=== PATIENT | female | born 1960 | race Caucasian/White ===

== ENCOUNTER 2017-04-01 08:45 | Inpatient (IN) | payer MEDICAID, SELFPAY ==
[2017-03-18 11:32] VITALS: BP 143/94; PULSE 73; RESP 16; TEMP 35.9; O2SAT 97; BMI 37.0
--- NOTE | 2017-03-18 11:44 | SDCEKG_ITS ---
Test Reason : Blood Pressure : / mmHG Vent. Rate : 060 BPM Atrial Rate : 060 BPM P-R Int : 196 ms QRS Dur : 074 ms QT Int : 392 ms P-R-T Axes : 012 018 072 degrees QTc Int : 392 ms Normal sinus rhythm Normal ECG Confirmed by PHILLIP MCQUEEN ([id number]), school photograph editor BELTRAN CONTRERAS ([id number]) on 03/19/2017 11:31:59 AM Referred By: Sergo Rai Confirmed By:PHILLIP MCQUEEN
--- NOTE | 2017-03-18 12:01 | RAD_ITS ---
STUDY: X-RAY CHEST REASON FOR EXAM: Female, 56 years old. Pre-op. No chest complaints today TECHNIQUE: PA and lateral views of the chest. COMPARISON: Chest x-rays on February 03, 2015. FINDINGS: The lungs are clear and expanded. There is no demonstrated pleural abnormality. Normal size heart. Normal mediastinum and reyna. Normal visualized pulmonary arteries. Normal visualized aortic arch and descending thoracic aorta. There is mild thoracic dextroscoliosis Normal visualized ribs, clavicles, and shoulders. There is no demonstrated abnormality of the visualized soft tissue structures of the upper abdomen. RAD/Chest PA and Lateral IMPRESSION: No signs of acute cardiopulmonary disease. Mild thoracic dextroscoliosis Electronically Signed: Rob Flores MD, FACR at 12:43 EST , Service support ,
[2017-03-18 12:18] LABS: Absolute Neutrophil Count 3.8 X10^3/uL (2.0-7.7); Basophil# 0.02 X10^3/uL; Basophil% 0.3 % (0-1); Eosinophil# 0.25 X10^3/uL; Eosinophils% 3.4 % (0-5); Hematocrit 45.9 % (37-47); Hemoglobin 15.3 g/dl (12.0-15.0); Mean Corp Hgb Conc 33.3 g/gl (32-36); Mean Corpuscular Hgb 28.3 pg (27.0-32.0); Mean Platelet Vol. 10.8 fl (6.2-12.0); Monocyte# 0.81 X10^3/uL; Monocyte% 11.1 % (0-10); Neutrophil # 3.78 X10^3/uL (2.7-7.7); Neutrophil % 52.1 % (47-70); Platelet Count 223 K/mm3 (150-450); RBC Distribution Width SD 43.1 fl (35.1-43.9); White Blood Count 7.3 K/mm3 (4.4-11.0)
[2017-03-18 12:19] LABS: POSITIVE COUNT NO; POSITIVE DIFFERENTIAL NO; POSITIVE MORPHOLOGY NO
[2017-03-18 12:24] LABS: International Normalized Ratio 1.1; Prothrombin Time (Protime)PT. 13.6 SECONDS (11.7-14.9)
[2017-03-18 12:25] LABS: Partial Thromboplast Time 28.5 Seconds (24.1-36.2)
[2017-03-18 12:48] LABS: AST(SGOT) 26 U/L (15-37); Alanine Aminotransfer ALT/SGPT 33 U/L (12-78); Albumin, Serum 3.8 g/dL (3.4-5.0); Alkaline Phosphatase 114 U/L (45-117); Anion Gap 8 (5-15); BUN 12 mg/dL (7-18); BUN/Creat Ratio 13.5 RATIO (10-20); Bilirubin, Direct 0.13 mg/dL (0.00-0.30); Calcium,Total 9.1 mg/dL (8.5-10.1); Chloride 103 mmol/L (98-107); Creatinine, Serum 0.89 mg/dL (0.55-1.02); EST Glomerular Filtration Rate 70 mL/min (>60); Est Glom Filt Rate - Afr Amer 84 mL/min (>60); Estimated Creatinine Clearance 67.82 ml/min; Globulin 3.6 g/dL (2.2-4.2); Glucose 79 mg/dL (70-110); Potassium 4.5 mmol/L (3.5-5.1); Protein, Total 7.4 g/dL (6.4-8.2); Sodium Level 138 mmol/L (136-145)
--- NOTE | 2017-03-19 14:04 | HP.PCM_ITS ---
History and Physical DATE OF SERVICE: 04/01/2017 SCHEDULED PROCEDURE: Total hip arthroplasty HISTORY OF PRESENT ILLNESS: This is a 56-year-old female who is been having ongoing left hip pain for over 2 years. Patient reports pain can reach as high as a 10 out of 10. Her pain is constant, aching and sore. She has increased pain with activities of daily living including going up and down stairs walking any amount of distance. She does have start up pain. Pain is located in the left groin. Patient has tried oral medications consisting of meloxicam with animal relief. She has also undergone a cortisone injection in the left hip which only gave her 1 week of relief. Patient has medical history of anxiety. She will be undergoing preoperative surgical clearance from her primary care physician. After failing conservative measures and discussing all treatment options with Dr. Rai, the patient would like to proceed with a left total hip arthroplasty. Patient currently denies any chest pain, shortness of breath, fevers chills, or recent infections. REVIEW OF SYSTEMS: ROS: Const: Reports anxiety and weight change, but denies anorexia, change in appetite, fever, difficulty sleeping. CV: Denies chest pain, heart murmur, irregular heartbeat and peripheral vascular disease. Resp: Denies asthma, cough, pneumonia, sleep apnea, shortness of breath, tuberculosis and wheezing. GI: Denies constipation, diarrhea, heartburn, nausea, bloody stools and vomiting. : . (F Genital Sx) Denies incontinence. Musculo: Reports trouble walking and weakness, but denies leg swelling and pain. Skin: Denies Raynaud's, history of shingles and tattoo. Neuro: Reports difficulty with balance, dizziness and numbness/tingling but denies ambulatory dysfunction and tremor. Psych: Reports anxiety and stress, but denies depression, insomnia and mental illness. Gabo/Lymph: Denies anemia, bleeding/bruising tendency and past transfusion. Reviewed, no changes. PAST MEDICAL HISTORY: Advance Care Plan: No Advance Directives Effective Date: 02/26/2017 PMH: Medical Problems: Arthritis, Anxiety Accidents: None Surgical Hx: Tonsillectomy - 8 YRS OLD Tubal Ligation - 29 YEARS AGO DNC - (2) 6 YEARS AGO Ablation - 6 YEARS AGO Foot - LT 4 YEARS AGO Anesthesia Complications: None Assistive Devices: Glasses Reviewed, no changes. SOCIAL HISTORY: SH: Marital: .Occupation: Housewife.Work Status: Housewife.Hand Dominance: Left-handed. Personal Habits: Cigarette Use: Never Smoked Cigarettes.Alcohol: Denies use.Drug Use: Denies Use.Enjoy Exercising: Daily. Reviewed, no changes. VITALS: Ht: 67 Wt: 233lb Wt k.689 BMI: 36.5 BP: 138/80 Pulse: 84 Resp: 16 T: 97.8 T: 36.6C ALLERGIES: Vitamins Darvocet Vicodin Penicillin MEDICATIONS: Hydrochlorothiazide 25 mg 1 PO qd, Prilosec I PO qd, Fluoxetine HCL (PMDD) 20 mg 1po qday, Xanax 0.25 mg 1 by mouth every 12 hours as needed anxiety, Meloxicam 7.5 mg 1 by mouth twice a day, Percogesic 12.5-325 mg prn PRE-OP EXAM: General appearance:NORMAL Other: Eyes: Conjunctivae and lids: NORMAL Pupils: ERR Ears, Nose, Mouth, and Throat: NORMAL Other: Inspection of lips, teeth and gums: NORMAL Other: Neck: Examination of neck: no masses noted. Respiratory: Assessment of respiratory effort: NORMAL Other: Ausculation of lungs: clear to ausculation no wheeses, ronchi or rales. Cardiovascular: Ausculation of heart: regular rate and rhythem, no mummurs, gallops or rubs. Exam of carotid arteries: NORMAL Other: Gastrointestinal: Exam of abdomen: soft, nontender, nondistended bowel sounds present. Lymphatic: Palpation of nodes in neck: NORMAL Other: Palpation of nodes in Axillae: NORMAL Other: Neurological: see below Psychiatric: Orientation to time, place and person: NORMAL Other: Mood and affect: NORMAL Other: PHYSICAL EXAMINATION: Patient walks with an antalgic gait. She has tenderness to palpation to the lateral left hip. Range of motion is 90? of flexion, internal rotation to 5?, external rotation to 20?. Sensations intact to light touch, neurovascularly intact. IMAGING STUDIES: X-rays of the left hip reveal severe osteoarthritis with joint space narrowing, subchondral sclerosis, and osteophyte formation. 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 IMPRESSION: 1. Severe left hip osteoarthritis 2. Anxiety PLAN: Dr. Rai did discuss and review with the patient all treatment options including surgical versus nonsurgical. Patient wishes to proceed with above- stated procedure. Potential risks, benefits, and complications of this procedure were discussed in detail including but not limited to , infection , nerve and blood vessel damage, persistent pain, numbness, tingling, paresthesias, blood clot, pulmonary embolism, and requirement for further surgery. The patient expressed full understanding has no further questions for the doctor. Patient does agree to proceed with the above-stated procedure and has signed the surgery consent form. ___ I have re-examined the patient. There are no clinical changes since date of exam. ___ See progress notes for changes. ___ Dictated on admission Date: Time: Signature:
[2017-04-01] VITALS (9 sets, daily range): BP systolic 124–154; BP diastolic 67–93; PULSE 64–78; RESP 16–18; TEMP 35.7–37; O2SAT 94–99; BMI 37.0; BMI 37.1
[2017-04-01] MEDS: oxyCODONE HCl Cr 10 MG Tablet PO (09:39)
[2017-04-01] MEDS: Celecoxib 200 MG Capsule 400 MG PO (09:39)
[2017-04-01] MEDS: Acetaminophen 500 MG Tablet 1000 MG PO ×2 (09:40→21:20)
--- NOTE | 2017-04-01 09:49 | RAD_ITS ---
STUDY: X-RAY - PELVIS AND LEFT HIP REASON FOR EXAM: Female, 57 years old. Anterior hip replacement. TECHNIQUE: Radiological exam, hip, unilateral, with pelvis when performed; 2 or 3 views. COMPARISON: None. FINDINGS: Intraoperative fluoroscopic services were provided for left anterior hip replacement. There is good alignment. RAD/Hip 1 view with Pelvis IMPRESSION: Status post anterior left hip replacement. There is good alignment. Electronically Signed: Efren Yu MD at 12:48 EST Tel [phone], Service support ,
--- NOTE | 2017-04-01 09:57 | PCM.OPRPT ---
Report of Operation Date of Procedure: 04/01/17 Pre-Operative Diagnosis: Bilateral primary hip osteoarthritis Post-Operative Diagnosis: Bilateral primary hip osteoarthritis Surgery/Procedure Performed:: 1. Left total hip replacement, direct anterior. 2. Right total hip replacement, direct anterior Description of Surgical Findings:: Stable hipS with equal leg lengths java scala developer: Taisha Mauricio Type of Anesthesia:: Spinal Anesthesiologist: Rafael Dockery Special Medications: 2 g Ancef, 1 g TXA at incision, 1 g TXA closure, 10 mg Decadron, joint cocktail (30 mL of 0.5% Ropivicaine, 1000 units of epinephrine, 30 mg of Toradol) Specimen's removed: Bony cuts bilaterally Estimated Blood Loss (mL): 200 ML Fluids Replaced: 1800 mL crystalloid Description of Procedure: Components used: Left 1. Accolade 2 Natalie femoral stem size 7 127? 2. Glade trident acetabular shell size 52 mm 3. Glade X3 polyethylene E 4. Natalie Biolox delta 36mm, -5mm femoral head Right 1. Accolade 2 Glade femoral stem size 6 127? 2. Glade trident acetabular shell size 52 mm 3. Glade X3 polyethylene E 4. Glade Biolox delta 36mm, 0mm femoral head Brief history operative indications: 57 yo F who failed conservative measures for their hip osteoarthritis. X-rays were consistent with osteoarthritis including joint space narrowing, osteophyte formation and subchondral cysts. Total hip replacement was discussed with the patient with risks and benefits including but not limited to blood loss, DVTs, PEs, neurovascular damage, dislocation, general risks of anesthesia including loss of life. Patient demonstrated an understanding medical clearance is obtained the patient was consented for surgery. Procedure: On the date of procedure the patient's B hip was marked in the preoperative area. Patient was then taken back to the operating room where anesthesia assumed control of the C-spine and airway and administered anesthetic. Patient was transferred to the operating table and placed in the supine position. The hips were placed at the break of the bed and a sacral bump was placed. The B lower extremity was then prepped out in a sterile fashion using chlorhexidine while the surgeon scrubbed. The PA was vital in the positioning of the patient. Upon reentering the room the B lower extremity was draped in the standard orthopedic fashion and the incision was marked. A timeout was called and everyone agreed upon the side, the site, the procedure be performed, antibody given, and patient's identity. Based on patient's most severe discomfort we elected to start on the left side. At this time incision was made on the left through skin, subcutaneous tissue, and fat down to fascia. The fascia was then incised and the TFL was retracted laterally. A retractor was placed on the lateral border of the femoral neck. Attention was directed to the inferior portion of the approach and all crossing vessels were identified and appropriately coagulated. A retractor was then placed on the medial portion of the femoral neck. The anterior capsule was then cleared of all soft tissue and then H shaped capsulotomy was made. The retractors were then placed inside the capsule. The femoral neck was identified and a cleanup cut was made. At this time a power corkscrew was used to remove the femoral head. Attention was then turned toward the acetabulum where the soft tissues were appropriately retracted and the acetabulum was sequentially reamed to 51 mm. A 52 mm cup was then selected and impacted into place. Acetabular liner was impacted into place and locking mechanism was verified. The position of the acetabular cup was then verified under live fluoroscopy. Attention was then turned to the femur. Soft tissue releases on the medial and lateral femoral neck were appropriately done, the leg was externally rotated and lateralized. A Estrada retractor was placed medially and proximally to the greater trochanter this allowed appropriate visualization and exposure of the femoral canal. Rongeour was then used to remove excess lateral bone. A canal finder and entry broach were used to open the proximal canal. Once we verified we were down the femoral canal we subsequently broached up to a size 7 femur. The appropriate neck was placed in the previously selected head was trialed with a -5 mm neck. Traction was pulled and the hip was reduced with internal rotation. Once it was appropriately reduced and stability was checked. There was minimal shuck, equal leg lengths and appropriate stability with hyperextension and external rotation as well as with 90? flexion and internal rotation. Fluoroscopy was then also used to verify the position of the components and leg lengths using the contralateral side for comparison. The trial components were then dislocated the proximal femur was again exposed and the components were removed from the wound. The final components were verified and opened. The wound was copiously irrigated out with normal saline. The acetabulum was checked for any residual debris. The final components were placed and impacted. Traction and internal rotation were again used to reduce the hip. After adequate reduction the hip remained stable with appropriate leg lengths. The final components were once again checked with live fluoroscopy and were found to be satisfactory. The wound was then copiously irrigated with normal saline once more, and hemostasis was obtained. Closure was then done using #1 Vicryl runner to close the fascia. A 2-0 vicryl interuppted sutures were used to close the subcutaneous skin. A 3-0 Monocryl and Steri-Strips were used for final skin closure. A Silverlon dressing was placed. While my contact center assistant was closing the contralateral side incision was made on the right through skin, subcutaneous tissue, and fat down to fascia. The fascia was then incised and the TFL was retracted laterally. A retractor was placed on the lateral border of the femoral neck. Attention was directed to the inferior portion of the approach and all crossing vessels were identified and appropriately coagulated. A retractor was then placed on the medial portion of the femoral neck. The anterior capsule was then cleared of all soft tissue and then H shaped capsulotomy was made. The retractors were then placed inside the capsule. The femoral neck was identified and a cleanup cut was made. At this time a power corkscrew was used to remove the femoral head. Attention was then turned toward the acetabulum where the soft tissues were appropriately retracted and the acetabulum was sequentially reamed to 51 mm. A 52 mm cup was then selected and impacted into place. Acetabular liner was impacted into place and locking mechanism was verified. The position of the acetabular cup was then verified under live fluoroscopy. Attention was then turned to the femur. Soft tissue releases on the medial and lateral femoral neck were appropriately done, the leg was externally rotated and lateralized. A Estrada retractor was placed medially and proximally to the greater trochanter this allowed appropriate visualization and exposure of the femoral canal. Rongeour was then used to remove excess lateral bone. A canal finder and entry broach were used to open the proximal canal. Once we verified we were down the femoral canal we subsequently broached up to a size 6 femur. The appropriate neck was placed in the previously selected head was trialed with a 0 mm neck. Traction was pulled and the hip was reduced with internal rotation. Once it was appropriately reduced and stability was checked. There was minimal shuck, equal leg lengths and appropriate stability with hyperextension and external rotation as well as with 90? flexion and internal rotation. Fluoroscopy was then also used to verify the position of the components and leg lengths using the contralateral side for comparison. The trial components were then dislocated the proximal femur was again exposed and the components were removed from the wound. The final components were verified and opened. The wound was copiously irrigated out with normal saline. The acetabulum was checked for any residual debris. The final components were placed and impacted. Traction and internal rotation were again used to reduce the hip. After adequate reduction the hip remained stable with appropriate leg lengths. The final components were once again checked with live fluoroscopy and were found to be satisfactory. The wound was then copiously irrigated with normal saline once more, and hemostasis was obtained. Closure was then done using #1 Vicryl runner to close the fascia. A 2-0 vicryl interuppted sutures were used to close the subcutaneous skin. A 3-0 Monocryl and Steri-Strips were used for final skin closure. A Silverlon dressing was placed. Patient was awakened by anesthesia and transferred to the [facility]. Patient was then transferred to the PACU for recovery. Postoperative plan: Patient will get 24 hours postop antibiotics. Patient will get in-house physical therapy and will be weight-bear as tolerated. Patient will follow up in office in 2 weeks for a wound check and x-rays. Grafts/Implants Used: Natalie Accolade 2 - Complications none - Admit VTE Documentation VTE Present on Admission: No VTE Mechan Device Prophylaxis: SCD's, Thigh High DEIRDRE Hose VTE Pharm Prophylaxis ordered?: Yes
[2017-04-01] MEDS: Lactated Ringers 1,000 ML 999 ML IV (10:00)
--- NOTE | 2017-04-01 10:03 | OP.PCM_ITS ---
Report of Operation Date of Procedure: 04/01/17 Pre-Operative Diagnosis: Bilateral primary hip osteoarthritis Post-Operative Diagnosis: Bilateral primary hip osteoarthritis Surgery/Procedure Performed:: 1. Left total hip replacement, direct anterior. 2. Right total hip replacement, direct anterior Description of Surgical Findings:: Stable hipS with equal leg lengths reel operator: Taisha Mauricio Type of Anesthesia:: Spinal Anesthesiologist: Rafael Dockery Special Medications: 2 g Ancef, 1 g TXA at incision, 1 g TXA closure, 10 mg Decadron, joint cocktail (30 mL of 0.5% Ropivicaine, 1000 units of epinephrine, 30 mg of Toradol) Specimen's removed: Bony cuts bilaterally Estimated Blood Loss (mL): 200 ML Fluids Replaced: 1800 mL crystalloid Description of Procedure: Components used: Left 1. Accolade 2 Natalie femoral stem size 7 127? 2. [place] trident acetabular shell size 52 mm 3. [place] X3 polyethylene E 4. Natalie Biolox delta 36mm, -5mm femoral head Right 1. Accolade 2 [place] femoral stem size 6 127? 2. [place] trident acetabular shell size 52 mm 3. [place] X3 polyethylene E 4. [place] Biolox delta 36mm, 0mm femoral head Brief history operative indications: 57 yo F who failed conservative measures for their hip osteoarthritis. X-rays were consistent with osteoarthritis including joint space narrowing, osteophyte formation and subchondral cysts. Total hip replacement was discussed with the patient with risks and benefits including but not limited to blood loss, DVTs, PEs, neurovascular damage, dislocation, general risks of anesthesia including loss of life. Patient demonstrated an understanding medical clearance is obtained the patient was consented for surgery. Procedure: On the date of procedure the patient's B hip was marked in the preoperative area. Patient was then taken back to the operating room where anesthesia assumed control of the C-spine and airway and administered anesthetic. Patient was transferred to the operating table and placed in the supine position. The hips were placed at the break of the bed and a sacral bump was placed. The B lower extremity was then prepped out in a sterile fashion using chlorhexidine while the surgeon scrubbed. The PA was vital in the positioning of the patient. Upon reentering the room the B lower extremity was draped in the standard orthopedic fashion and the incision was marked. A timeout was called and everyone agreed upon the side, the site, the procedure be performed, antibody given, and patient's identity. Based on patient's most severe discomfort we elected to start on the left side. At this time incision was made on the left through skin, subcutaneous tissue, and fat down to fascia. The fascia was then incised and the TFL was retracted laterally. A retractor was placed on the lateral border of the femoral neck. Attention was directed to the inferior portion of the approach and all crossing vessels were identified and appropriately coagulated. A retractor was then placed on the medial portion of the femoral neck. The anterior capsule was then cleared of all soft tissue and then H shaped capsulotomy was made. The retractors were then placed inside the capsule. The femoral neck was identified and a cleanup cut was made. At this time a power corkscrew was used to remove the femoral head. Attention was then turned toward the acetabulum where the soft tissues were appropriately retracted and the acetabulum was sequentially reamed to 51 mm. A 52 mm cup was then selected and impacted into place. Acetabular liner was impacted into place and locking mechanism was verified. The position of the acetabular cup was then verified under live fluoroscopy. Attention was then turned to the femur. Soft tissue releases on the medial and lateral femoral neck were appropriately done, the leg was externally rotated and lateralized. A Estrada retractor was placed medially and proximally to the greater trochanter this allowed appropriate visualization and exposure of the femoral canal. Rongeour was then used to remove excess lateral bone. A canal finder and entry broach were used to open the proximal canal. Once we verified we were down the femoral canal we subsequently broached up to a size 7 femur. The appropriate neck was placed in the previously selected head was trialed with a -5 mm neck. Traction was pulled and the hip was reduced with internal rotation. Once it was appropriately reduced and stability was checked. There was minimal shuck, equal leg lengths and appropriate stability with hyperextension and external rotation as well as with 90? flexion and internal rotation. Fluoroscopy was then also used to verify the position of the components and leg lengths using the contralateral side for comparison. The trial components were then dislocated the proximal femur was again exposed and the components were removed from the wound. The final components were verified and opened. The wound was copiously irrigated out with normal saline. The acetabulum was checked for any residual debris. The final components were placed and impacted. Traction and internal rotation were again used to reduce the hip. After adequate reduction the hip remained stable with appropriate leg lengths. The final components were once again checked with live fluoroscopy and were found to be satisfactory. The wound was then copiously irrigated with normal saline once more, and hemostasis was obtained. Closure was then done using #1 Vicryl runner to close the fascia. A 2-0 vicryl interuppted sutures were used to close the subcutaneous skin. A 3-0 Monocryl and Steri-Strips were used for final skin closure. A Silverlon dressing was placed. While my processing assistant was closing the contralateral side incision was made on the right through skin, subcutaneous tissue, and fat down to fascia. The fascia was then incised and the TFL was retracted laterally. A retractor was placed on the lateral border of the femoral neck. Attention was directed to the inferior portion of the approach and all crossing vessels were identified and appropriately coagulated. A retractor was then placed on the medial portion of the femoral neck. The anterior capsule was then cleared of all soft tissue and then H shaped capsulotomy was made. The retractors were then placed inside the capsule. The femoral neck was identified and a cleanup cut was made. At this time a power corkscrew was used to remove the femoral head. Attention was then turned toward the acetabulum where the soft tissues were appropriately retracted and the acetabulum was sequentially reamed to 51 mm. A 52 mm cup was then selected and impacted into place. Acetabular liner was impacted into place and locking mechanism was verified. The position of the acetabular cup was then verified under live fluoroscopy. Attention was then turned to the femur. Soft tissue releases on the medial and lateral femoral neck were appropriately done, the leg was externally rotated and lateralized. A Estrada retractor was placed medially and proximally to the greater trochanter this allowed appropriate visualization and exposure of the femoral canal. Rongeour was then used to remove excess lateral bone. A canal finder and entry broach were used to open the proximal canal. Once we verified we were down the femoral canal we subsequently broached up to a size 6 femur. The appropriate neck was placed in the previously selected head was trialed with a 0 mm neck. Traction was pulled and the hip was reduced with internal rotation. Once it was appropriately reduced and stability was checked. There was minimal shuck, equal leg lengths and appropriate stability with hyperextension and external rotation as well as with 90? flexion and internal rotation. Fluoroscopy was then also used to verify the position of the components and leg lengths using the contralateral side for comparison. The trial components were then dislocated the proximal femur was again exposed and the components were removed from the wound. The final components were verified and opened. The wound was copiously irrigated out with normal saline. The acetabulum was checked for any residual debris. The final components were placed and impacted. Traction and internal rotation were again used to reduce the hip. After adequate reduction the hip remained stable with appropriate leg lengths. The final components were once again checked with live fluoroscopy and were found to be satisfactory. The wound was then copiously irrigated with normal saline once more, and hemostasis was obtained. Closure was then done using #1 Vicryl runner to close the fascia. A 2-0 vicryl interuppted sutures were used to close the subcutaneous skin. A 3-0 Monocryl and Steri-Strips were used for final skin closure. A Silverlon dressing was placed. Patient was awakened by anesthesia and transferred to the [facility]. Patient was then transferred to the PACU for recovery. Postoperative plan: Patient will get 24 hours postop antibiotics. Patient will get in-house physical therapy and will be weight-bear as tolerated. Patient will follow up in office in 2 weeks for a wound check and x-rays. Grafts/Implants Used: Natalie Accolade 2 - Complications none - Admit VTE Documentation VTE Present on Admission: No VTE Mechan Device Prophylaxis: SCD's, Thigh High DERIDRE Hose VTE Pharm Prophylaxis ordered?: Yes
[2017-04-01] MEDS: Clindamycin 600 MG/50 ML BAG 100 MG IV ×3 (10:11→21:20)
--- NOTE | 2017-04-01 12:01 | OP.PCM_ITS ---
Report of Operation Date of Procedure: 04/01/17 Pre-Operative Diagnosis: Left primary hip osteoarthritis Post-Operative Diagnosis: Left primary hip osteoarthritis Surgery/Procedure Performed:: 1. Left total hip replacement, direct anterior Description of Surgical Findings:: Stable hip with equal leg lengths application integration engineer: Taisha Mauricio application integration engineer: Nic Prince Type of Anesthesia:: Spinal Anesthesiologist: Rafael Dockery Special Medications: 600 mg cleocin, 1 g TXA at incision, 1 g TXA closure, 10 mg Decadron, joint cocktail (30 mL of 0.5% Ropivicaine, 1000 units of epinephrine, 30 mg of Toradol) Specimen's removed: Bony cuts Estimated Blood Loss (mL): 150 ML Fluids Replaced: 1300 mL crystalloid Description of Procedure: Components used: 1. Accolade 2 Natalie femoral stem size 4 127? 2. [place] trident acetabular shell size 58 mm 3. [place] X3 polyethylene F 4. Natalie Biolox delta 36mm, 0mm femoral head Brief history operative indications: 57 yo F who failed conservative measures for their hip osteoarthritis. X-rays were consistent with osteoarthritis including joint space narrowing, osteophyte formation and subchondral cysts. Total hip replacement was discussed with the patient with risks and benefits including but not limited to blood loss, DVTs, PEs, neurovascular damage, dislocation, general risks of anesthesia including loss of life. Patient demonstrated an understanding medical clearance is obtained the patient was consented for surgery. Procedure: On the date of procedure the patient's L hip was marked in the preoperative area. Patient was then taken back to the operating room where anesthesia assumed control of the C-spine and airway and administered anesthetic. Patient was transferred to the operating table and placed in the supine position. The hips were placed at the break of the bed and a sacral bump was placed. The L lower extremity was then prepped out in a sterile fashion using chlorhexidine while the surgeon scrubbed. The PA was vital in the positioning of the patient. Upon reentering the room the L lower extremity was draped in the standard orthopedic fashion and the incision was marked. A timeout was called and everyone agreed upon the side, the site, the procedure be performed, antibody given, and patient's identity. At this time incision was made through skin, subcutaneous tissue, and fat down to fascia. The fascia was then incised and the TFL was retracted laterally. A retractor was placed on the lateral border of the femoral neck. Attention was directed to the inferior portion of the approach and all crossing vessels were identified and appropriately coagulated. A retractor was then placed on the medial portion of the femoral neck. The anterior capsule was then cleared of all soft tissue and then H shaped capsulotomy was made. The retractors were then placed inside the capsule. The femoral neck was identified and a cleanup cut was made. At this time a power corkscrew was used to remove the femoral head. Attention was then turned toward the acetabulum where the soft tissues were appropriately retracted and the acetabulum was sequentially reamed to 57 mm. A 58 mm cup was then selected and impacted into place. Acetabular liner was impacted into place and locking mechanism was verified. The position of the acetabular cup was then verified under live fluoroscopy. Attention was then turned to the femur. Soft tissue releases on the medial and lateral femoral neck were appropriately done, the leg was externally rotated and lateralized. A Estrada retractor was placed medially and proximally to the greater trochanter this allowed appropriate visualization and exposure of the femoral canal. Rongeour was then used to remove excess lateral bone. A canal finder and entry broach were used to open the proximal canal. Once we verified we were down the femoral canal we subsequently broached up to a size 4 femur. The appropriate neck was placed in the previously selected head was trialed with a 0 mm neck. Traction was pulled and the hip was reduced with internal rotation. Once it was appropriately reduced and stability was checked. There was minimal shuck, equal leg lengths and appropriate stability with hyperextension and external rotation as well as with 90? flexion and internal rotation. Fluoroscopy was then also used to verify the position of the components and leg lengths using the contralateral side for comparison. The trial components were then dislocated the proximal femur was again exposed and the components were removed from the wound. The final components were verified and opened. The wound was copiously irrigated out with normal saline. The acetabulum was checked for any residual debris. The final components were placed and impacted. Traction and internal rotation were again used to reduce the hip. After adequate reduction the hip remained stable with appropriate leg lengths. The final components were once again checked with live fluoroscopy and were found to be satisfactory. The wound was then copiously irrigated with normal saline once more, and hemostasis was obtained. Closure was then done using #1 Vicryl runner to close the fascia. A 2-0 vicryl interuppted sutures were used to close the subcutaneous skin. A 3-0 Monocryl and Steri-Strips were used for final skin closure. A Silverlon dressing was placed. Patient was awakened by anesthesia and transferred to the [facility]. Patient was then transferred to the PACU for recovery. Postoperative plan: Patient will get 24 hours postop antibiotics. Patient will get in-house physical therapy and will be weight-bear as tolerated. Patient will follow up in office in 2 weeks for a wound check and x-rays. Dr. Prince assisted in the surgery for evaluative and educational purposes only. Grafts/Implants Used: natalie - Complications none - Admit VTE Documentation VTE Present on Admission: No VTE Mechan Device Prophylaxis: SCD's, Thigh High DEIRDRE Hose VTE Pharm Prophylaxis ordered?: Yes
--- NOTE | 2017-04-01 12:15 | RAD_ITS ---
STUDY: X-RAY - PELVIS AND LEFT HIP REASON FOR EXAM: Female, 57 years old. Left total hip replacement. TECHNIQUE: Radiological exam, hip, unilateral, with pelvis when performed; 1 view COMPARISON: Comparison is made with prior study dated January 12, 2017. FINDINGS: The patient is status post left total hip replacement. There is good alignment. Postoperative soft tissue changes. Phleboliths are seen in the pelvis. RAD/Hip Min 2 Views (Portable) IMPRESSION: Status post total hip replacement. There is good alignment. Electronically Signed: Efren Yu MD at 14:53 EST Tel [phone], Service support ,
[2017-04-01] MEDS: Scopolamine 1mg/72hr Patch 1 PATCH TD (12:38)
[2017-04-01] MEDS: Lactated Ringers 1,000 ML 125 ML IV ×2 (13:03→17:46)
[2017-04-01] MEDS: FLUoxetine 20 MG Capsule PO (14:12)
[2017-04-01] MEDS: Famotidine 20 MG Tablet PO (14:12)
[2017-04-01] MEDS: Senna/Docusate Sodium 1 Tablet 2 TABLET PO ×2 (14:48→21:20)
[2017-04-01] MEDS: Aspirin 325 MG Tablet PO (17:43)
[2017-04-02] MEDS: Ketorolac 15 MG/ML Vial IV (02:47)
[2017-04-02] MEDS: 0.9% NaCl Peripheral Flush Adult/Peds IV (02:47)
[2017-04-02 02:51] VITALS: BP 116/71; PULSE 57; RESP 16; TEMP 36.6; O2SAT 94
[2017-04-02] MEDS: Clindamycin 600 MG/50 ML BAG 100 MG IV (02:57)
[2017-04-02] MEDS: Acetaminophen 500 MG Tablet 1000 MG PO ×2 (05:01→14:16)
[2017-04-02 06:16] LABS: Hematocrit 35.4 % (37-47); Hemoglobin 12.1 g/dl (12.0-15.0); Mean Corp Hgb Conc 34.2 g/gl (32-36); Mean Corpuscular Hgb 28.7 pg (27.0-32.0); Mean Corpuscular Volume 83.9 fL (81-99); Mean Platelet Vol. 11.1 fl (6.2-12.0); Platelet Count 192 K/mm3 (150-450); RBC Distribution Width CV 13.6 % (11.6-14.6); RBC Distribution Width SD 40.9 fl (35.1-43.9); Red Blood Count 4.22 M/mm3 (4.2-5.4); White Blood Count 19.2 K/mm3 (4.4-11.0)
[2017-04-02 06:18] LABS: Scan Indicated on CBC? Y/N NO
[2017-04-02 06:23] LABS: Anion Gap 8 (5-15); BUN 13 mg/dL (7-18); BUN/Creat Ratio 18.3 RATIO (10-20); Calcium,Total 8.6 mg/dL (8.5-10.1); Chloride 104 mmol/L (98-107); Creatinine, Serum 0.71 mg/dL (0.55-1.02); EST Glomerular Filtration Rate 90 mL/min (>60); Est Glom Filt Rate - Afr Amer 109 mL/min (>60); Estimated Creatinine Clearance 83.99 ml/min; Glucose 141 mg/dL (70-110); Potassium 4.4 mmol/L (3.5-5.1); Sodium Level 137 mmol/L (136-145)
[2017-04-02] MEDS: oxyCODONE 5 MG Tablet PO ×2 (06:46→14:17)
[2017-04-02 07:32] VITALS: BP 129/68; PULSE 66; PULSE 70; RESP 18; TEMP 37.2; O2SAT 97
[2017-04-02] MEDS: Pantoprazole Sodium 20 MG Tablet PO (07:42)
[2017-04-02] MEDS: Aspirin 325 MG Tablet PO (07:42)
[2017-04-02] MEDS: Senna/Docusate Sodium 1 Tablet 2 TABLET PO (07:42)
[2017-04-02] MEDS: FLUoxetine 20 MG Capsule PO (07:43)
--- NOTE | 2017-04-02 10:47 | PCM.PN.ORT ---
Subjective: The patient was sitting in bed upon examination. Patient denies any chest pain, shortness of breath, dizziness, lightheadedness, nausea or vomiting, or calf pain. Pain is controlled on medications. No adverse overnight events. Patient is doing very well today. Patient has tolerated physical therapy and does wish to go home today. Objective: Vital signs stable and afebrile. Patient is able to plantarflex and dorsiflex actively. Sensation is intact to light touch to saphenous, sural, superficial and deep peroneal, and tibial distribution. Dressing is clean dry and intact. Negative Homans bilaterally, negative signs and symptoms of DVT. - Physical Exam General: Alert, Oriented x3, Cooperative, No apparent distress Vital Signs Temp Pulse Resp BP Pulse Ox 98.9 F 70 18 129/68 H 97 04/02/17 07:32 04/02/17 07:32 04/02/17 07:32 04/02/17 07:32 04/02/17 07:32 Oxygen Delivery Method Room Air Weight: 107.6 kg Body Mass Index (BMI) 37.1 Intake and Output for Last 24 Hours 03/31/17 04/01/17 04/02/17 23:59 23:59 23:59 Intake Total 2801 / 2801 1749 / 1749 Balance 2801 / 2801 1749 / 1749 Laboratory Tests Past 24 Hrs 04/02/17 04/02/17 05:45 05:45 WBC 19.2 H RBC 4.22 Hgb 12.1 Hct 35.4 L MCV 83.9 MCH 28.7 MCHC 34.2 RDW 13.6 RDW Differential 40.9 Plt Count 192 MPV 11.1 Sodium 137 Potassium 4.4 Chloride 104 Carbon Dioxide 25.0 Anion Gap 8 BUN 13 Creatinine 0.71 Estim Creat Clear Calc 83.99 Est GFR (MDRD) Af Amer 109 Est GFR (MDRD) Non-Af 90 BUN/Creatinine Ratio 18.3 Glucose 141 H Calcium 8.6 Assessment/Plan 1. S/P left total hip arthroplasty POD #1 2. Continue Pain Medications: Tylenol and OxyIR 3. DVT Prophylaxis: Aspirin 325 mg twice daily 4. PT/OT: Weightbearing as tolerated 5. H & H: 12.1/35.4, asymptomatic 6. Leukocytosis: Currently 19.2, afebrile. Patient did receive Decadron intraoperatively 7. Encouraged Incentive Spirometry 8. Disposition: Orthopedically stable, patient will be discharged home today. Pres[facility] [place]. Patient will follow-up per postop instructions.
--- NOTE | 2017-04-02 10:59 | DCINST_ITS ---
Discharge Diet: No Restrictions Discharge Activity: May Not Drive - while taking narcotic pain medications. May shower in (days): 1 - Dressing must be intact the skin, turned dressing away from water Weight Bearing Status: Weight bearing as tolerated Additional Activity Instructions:: Wear elastic stockings for 2 weeks. DO NOT use alcohol with narcotic pain medication. DO NOT make important decisions while taking narcotic medication. If you have problems with taking your medication (rash, itching, nausea, etc.) call the office at once. Call your doctor if your incision/area has: Increased Pain/ Swelling, Increased Redness, Foul Smelling Discharge Call your doctor if you observe: Fever of 101 or Higher Remove Dressing in (days):: 4 - Okay to remove on April 06, 2017 Additional Instructions: Follow [facility] postop instruction Do not take anti-inflammatories while taking aspirin for DVT prophylaxis Allergies/Adverse Reactions: Allergies acetaminophen [From Vicodin] Adverse Reaction (Verified 03/18/17 11:13) Abd cramps/diarrhea hydrocodone bitartrate [From Vicodin] Adverse Reaction (Verified 03/18/17 11:13) Abd cramps/diarrhea Penicillins Adverse Reaction (Verified 03/18/17 11:13) Diarrhea propoxyphene napsylate [From Darvocet-N] Adverse Reaction (Verified 03/18/17 11: 13) Vomiting coated vitamins Adverse Reaction (Uncoded 03/18/17 11:13) Itching Medications to take at Discharge ALPRAZolam [Xanax] 0.125 mg PO DAILY PRN PRN 02/03/15 Cyclobenzaprine [Flexeril] 10 mg PO TID PRN #20 tablet 02/03/15 Fluoxetine [Prozac] 20 mg PO DAILY 02/03/15 Omeprazole [Prilosec] 10 mg PO DAILY 02/03/15 Hydrochlorothiazide [Hctz] 25 mg PO PRN PRN 03/18/17 Acetaminophen [Tylenol] 1,000 mg PO Q8 #90 tab 04/02/17 Aspirin 325 mg PO BIDCM #30 tab 04/02/17 Oxycodone [Oxyir] 5 - 10 mg PO Q4H PRN PRN 7 Days #60 tablet 04/02/17 Senna/Docusate Sodium [Senokot-S] 2 tab PO BID #20 tab 04/02/17 The following prescriptions were given: Oxycodone [Oxyir] 5 - 10 mg PO Q4H PRN PRN 7 Days #60 tablet PRN Reason: Mod-Severe Pain (-12/09) Acetaminophen [Tylenol] 1,000 mg PO Q8 #90 tab Aspirin 325 mg PO BIDCM #30 tab Senna/Docusate Sodium [Senokot-S] 2 tab PO BID #20 tab Primary Care Physician: Foreign Du [Primary Care Provider] - Please Follow Up With: [facility] When: 04/06/17 @ 11:00 am Please Follow Up With: Jeffery Gonzalez PA-C When: 04/15/17 @ 9:30 am
--- NOTE | 2017-04-02 11:04 | CASEMGMT ---
MILAN MEZA Face to Face with patient for initial transition planning/care coordination assessment. MILAN MEZA introduced self and role at [facility]. Patient lying in bed, alert and oriented. Patient willing to participate in assessment and is able to answer all questions appropriately. Care providers, pharmacy, and demographics verified. Patient states that she has a walker, grab bars, tub bench, and raised toilet seat. Patient states that her children will be providing transportation. Patient wishes to discharge home with outpatient therapy at [facility]. Patient states she has no further needs or concerns at this time. CM to follow for discharge planning needs that may arise. Disposition Plan: Patient to discharge home with outpatient therapy, family support, and follow up plans in place.
[2017-04-02 14:14] VITALS: BP 117/59; PULSE 65; RESP 18; TEMP 36.6; O2SAT 95
== END 2017-04-02 14:44 | disposition home or self-care (01) | DRG 209 ==
LOC: ACINP 08:46 → MS3 11:56
PROVIDERS: Anesthesiology; Admitting Provider Specialist; Family Provider Family Medicine; PCP Family Medicine; Visit Provider Specialist
PROC: 0SRB04A Replacement of Left Hip Joint with Ceramic on Polyethylene Synthetic Substitute, Uncemented, Open Approach (ICD-10-PCS; CPT 27284; principal; 2017-04-01 09:50)
DX: M16.12 Unilateral primary osteoarthritis, left hip (principal); F41.9 Anxiety disorder, unspecified
CPT/HCPCS: 36415; 73501; 73502; 76000; 80048; 80076; 85025; 85027; 85610; 85730; 87081; 97110; 97116; 97162; 97165; 97530; 97535; 99251; J7120; A4216; G0463; J2405

== ENCOUNTER 2018-05-07 12:24 | Emergency (ER) | payer SELFPAY ==
[2018-05-07 12:24] VITALS: BP 162/103; PULSE 75; RESP 16; TEMP 36.9; O2SAT 98; BMI 41.0
--- NOTE | 2018-05-07 15:07 | EKG12_ITS ---
Test Reason : HYPERTENSION Blood Pressure : / mmHG Vent. Rate : 070 BPM Atrial Rate : 070 BPM P-R Int : 196 ms QRS Dur : 074 ms QT Int : 414 ms P-R-T Axes : 048 012 069 degrees QTc Int : 447 ms Normal sinus rhythm Normal ECG Confirmed by LEEANN GURROLA MD ([id number]), graphic editor BELTRAN CONTRERAS ([id number]) on 05/11/2018 9:16:59 AM Referred By: BAYRON/RICHAR/DAVDI/UG Confirmed By:LEEANN GURROLA MD
--- NOTE | 2018-05-07 15:10 | ED.VISSUMM ---
- ER Visit Summary Date of Service: 05/07/18 Chief Complaint: High blood pressure History of Present Illness: The patient is a 58 F who presents with elevated blood pressures for the past month. Patient states these have been trending upwards for the past month. Patient states her blood pressure at home was 190-200 systolic and 90-110s diastolic. To a generalized headache. Patient describes it as throbbing. Patient states her blood pressure improves when she lays down. Patient states her headache gets worse with activity. Patient denies any fevers or chills. Patient does admit to some chest pain and shortness of breath. Patient also admits to history of anxiety. Physical Examination: Vital signs are stable. Blood pressure is 162/103. Patient is afebrile. Patient is in no acute distress. Oral mucosa is pink and moist. Neck is supple. Trachea is midline. There is no JVD noted. Heart was regular rate and rhythm. Lungs are clear and equal bilateral. Abdomen is soft and nontender. Cranial nerves II through XII are intact. There are no focal motor or sensory deficits noted. The remaining physical exam is within normal limits. Test Results: CBC, basic metabolic profile, troponin, and urinalysis were obtained and were all normal. Chest x-ray does not show any acute cardiopulmonary process. Emergency Department Course and Treatment: Patient's blood pressure continued to improve here in the emergency department. The patient does state however that her blood pressure goes up whenever her activity increases. Patient will be started on low-dose hydrochlorothiazide. Patient was instructed to follow-up with her primary care physician in 5-7 days. Patient and family understood and were agreeable with the plan. All questions were answered. Disposition: Discharge home Impression: Hypertension This note was generated with [employer] software. It may contain incorrect words, spelling, and punctuation that were not noted in review of the chart prior to signing ED Disposition - Plan for ED Patient: Disposition: Home or Assisted Living Diagnosis: Hypertension Instructions: ED HTN Established Prescriptions: Hydrochlorothiazide 12.5 mg PO DAILY #15 cap Referrals: Foreign Du [Primary Care Provider] - 5-7 Days
[2018-05-07 15:26] VITALS: BP 157/74; PULSE 70; RESP 17; O2SAT 96
[2018-05-07] MEDS: DiphenhydrAMINE 50 MG/ML Syringe 25 MG IV (16:16)
[2018-05-07] MEDS: Metoclopramide 10 MG/2 ML Vial IV (16:16)
[2018-05-07 16:18] LABS: Absolute Lymphocyte Count 2.63 X10^3/ul (0.83-4.51); Absolute Neutrophil Count 3.9 X10^3/uL (2.0-7.7); Basophil# 0.02 X10^3/uL; Basophil% 0.3 % (0-1); Eosinophil# 0.22 X10^3/uL; Eosinophils% 2.9 % (0-5); Hematocrit 42.2 % (37-47); Hemoglobin 13.7 g/dl (12.0-15.0); Lymphocyte # 2.63 X10^3/ul (4.0); Lymphocyte % 34.9 % (19-41); Mean Corp Hgb Conc 32.5 g/gl (32-36); Mean Corpuscular Hgb 26.4 pg (27.0-32.0); Mean Corpuscular Volume 81.5 fL (81-99); Mean Platelet Vol. 10.7 fl (6.2-12.0); Monocyte# 0.71 X10^3/uL; Monocyte% 9.4 % (0-10); Neutrophil # 3.94 X10^3/uL (2.7-7.7); Neutrophil % 52.2 % (47-70); POSITIVE COUNT NO; POSITIVE DIFFERENTIAL NO; POSITIVE MORPHOLOGY NO; Platelet Count 251 K/mm3 (150-450); RBC Distribution Width CV 14.9 % (11.6-14.6); RBC Distribution Width SD 43.9 fl (35.1-43.9); Red Blood Count 5.18 M/mm3 (4.2-5.4); White Blood Count 7.5 K/mm3 (4.4-11.0)
--- NOTE | 2018-05-07 16:25 | RAD_ITS ---
STUDY: X-RAY CHEST REASON FOR EXAM: Female, 58 years old. Hypertension. Dizziness. Chest discomfort. TECHNIQUE: PA and lateral views of the chest. COMPARISON: March 18, 2007. FINDINGS: Telemetry wires overlie the chest. The lungs are clear and expanded. There is no demonstrated pleural abnormality. Normal size heart. Normal mediastinum and reyna. Normal visualized pulmonary arteries. Normal visualized aortic arch and descending thoracic aorta. There are diffuse degenerative changes of the visualized thoracic spine. Normal visualized ribs, clavicles, and shoulders. There is no demonstrated abnormality of the visualized soft tissue structures of the upper abdomen. RAD/Chest PA and Lateral IMPRESSION: No acute cardiopulmonary disease or interval change. Electronically Signed: Sami Abel DO at 17:06 EST Tel [phone], Service support ,
[2018-05-07 16:36] LABS: Anion Gap 7 (5-15); BUN 12 mg/dL (7-18); BUN/Creat Ratio 15.4 RATIO (10-20); Calcium,Total 8.7 mg/dL (8.5-10.1); Chloride 107 mmol/L (98-107); Creatinine, Serum 0.78 mg/dL (0.55-1.02); EST Glomerular Filtration Rate 80 mL/min (>60); Est Glom Filt Rate - Afr Amer 97 mL/min (>60); Glucose 87 mg/dL (74-106); Potassium 3.9 mmol/L (3.5-5.1); Sodium Level 141 mmol/L (136-145)
[2018-05-07 16:38] LABS: Bacteria 0 SEEN /hpf (None Seen)
[2018-05-07 16:43] LABS: Color, Urine Yellow (Yellow); Glucose, Dipstick Normal (Normal); Ketone-Dipstick Negative (Negative); Leukocyte Esterase-Dipstick 25 /ul (Negative); Nitrite-Dipstick Negative (Negative); Occult Blood-Urine Negative /ul (Negative); Protein-Dipstick Negative (Negative); Urine Bilirubin Dipstick Negative (Negative); Urine Clarity Clear (Clear); Urine Urobilinogen Normal (Normal)
[2018-05-07 16:59] LABS: Mucous, Urine 1+ /hpf (<or=2+); Red Blood Cells-Urine 0-5 SEEN /hpf (0-5); Squamous Epithelial Cells - UA 0-5 SEEN /hpf (5-10); White Blood Cells 0-5 SEEN /hpf (0-5)
[2018-05-07 18:05] VITALS: BP 136/72; PULSE 66; RESP 17; O2SAT 95
== END 2018-05-07 18:07 | disposition home or self-care (01) ==
PROVIDERS: Emergency Provider Emergency Medicine; Family Provider Family Medicine; PCP Family Medicine
DX: I10 Essential (primary) hypertension (principal); R07.9 Chest pain, unspecified; R06.02 Shortness of breath; M54.2 Cervicalgia; K21.9 Gastro-esophageal reflux disease without esophagitis; E66.9 Obesity, unspecified; F41.9 Anxiety disorder, unspecified; Z79.899 Other long term (current) drug therapy
CPT/HCPCS: 71046; 80048; 81001; 84484; 85025; 93005; 96374; 96375; 99284; A4216

== ENCOUNTER 2020-04-02 19:53 | Emergency (ER) | payer SELFPAY ==
[2020-04-02 19:54] VITALS: BP 133/92; PULSE 112; RESP 18; TEMP 36.9; O2SAT 99; BMI 39.4
--- NOTE | 2020-04-02 20:11 | ED.VISSUMM ---
- ER Visit Summary Date of Service: 04/02/20 Chief Complaint: Upper lip swelling History of Present Illness: The patient is a [address] Du. She reports that she has been on lisinopril/hydrochlorothiazide for 2 years. Her last dose was at 915 this morning. She states that she woke up this morning and she had mild swelling to her upper lip. This is progressed throughout the day despite taking Benadryl. She has never had anything like this before. She denies a family history of angioedema. Patient denies any change in soap, shampoo, laundry detergent, or fabric softener. No new clothing, bedding, carpeting, or pets. No new medications in the past month. Physical Examination: Vitals: Stable. Afebrile. General: Well-nourished and well-developed. Head: Normocephalic atraumatic. HEENT: Moderate swelling to her upper lip. There is no swelling to her lower lip, tongue, or pharynx. Neck: Supple, no lymphadenopathy. No JVD. Nontender. Cardiovascular: Regular rate and rhythm. No murmurs. Respiratory: No respiratory distress. Clear to auscultation bilaterally. Abdominal: Soft, nontender, nondistended, normal bowel sounds. No guarding, rebound, or peritoneal signs. Back: Nontender. Extremities: Nontender, no edema. Skin: Normal color, no rash. Neurologic: Alert and oriented ?3. Cranial nerves II through XII are intact. Normal strength and sensation. Psych: Normal affect. Emergency Department Course and Treatment: Patient had an IV placed. She was given Benadryl, Pepcid, and Solu-Medrol IV. She was observed over the course of 2 hours and has not developed any swelling of her tongue. Treatment Plan: Patient will be discharged with instructions to return the emerge department if her tongue began swelling. She is instructed to not take an TRICIA inhibitor or ARB again. She will be given a prescription for Zyrtec, prednisone, and Pepcid. Instructed to follow-up with her primary care physician in 2 days for another exam. Return to the emergency department for any worsening symptoms. Disposition: To home in improved and stable condition. Impression: 1. Angioedema on lisinopril. This note was generated with [employer] dictation software. It may contain incorrect words, spelling, and punctuation that were not noted in review of the chart prior to signing ED Disposition - Plan for ED Patient: Instructions: ED Angioedema Prescriptions: Prednisone [Deltasone] 40 mg PO DAILY #10 tab Famotidine [Pepcid] 20 mg PO BID #28 tab Cetirizine HCl [Zyrtec] 10 mg PO DAILY #14 cap Referrals: Foreign Du MD [Primary Care Provider] - 2 Days Additional Instructions: Do not take an TRICIA inhibitor or ARB as you may have a worse reaction than tonight.
[2020-04-02] MEDS: MethylPREDNISolone 125 MG/2 ML Vial IV (20:14)
[2020-04-02] MEDS: DiphenhydrAMINE 50 MG/ML Syringe IV (20:14)
[2020-04-02] MEDS: Famotidine 200 MG/20 ML MDV 20 MG in 0.9% Normal Saline (Pres. free 8 ML 300 MG IV (20:35)
[2020-04-02 22:33] VITALS: BP 105/63; PULSE 80; RESP 16; O2SAT 97
== END 2020-04-02 22:35 | disposition home or self-care (01) ==
LOC: ED 20:17
PROVIDERS: Emergency Provider Emergency Medicine; PCP Family Medicine
DX: T78.3XXA Angioneurotic edema, initial encounter (principal); R05 Cough; R51.9 Headache, unspecified; I10 Essential (primary) hypertension; M19.90 Unspecified osteoarthritis, unspecified site; K21.9 Gastro-esophageal reflux disease without esophagitis; F41.9 Anxiety disorder, unspecified; Z79.899 Other long term (current) drug therapy
CPT/HCPCS: 96374; 96375; 99283; A4216; J3490

== ENCOUNTER 2022-01-09 13:38 | Emergency (ER) | payer SELFPAY ==
[2022-01-09 13:39] VITALS: BP 155/92; PULSE 95; RESP 14; TEMP 36.2; O2SAT 97; BMI 38.8
[2022-01-09 14:22] VITALS: BP 141/84; PULSE 85; RESP 19; O2SAT 95
--- NOTE | 2022-01-09 14:28 | EX.ED.DYSGE1 ---
HPI History of Present Illness Chief Complaint: Hypertension Informant: patient Onset/Context/Timing Onset: Today Context: Gradual Onset Timing: Continuous Worsened by: Nothing Relieved by: Nothing Associated Symptoms Associated Symptoms: Dizziness Narrative Narrative: Patient presents with elevated blood pressure that began today. Patient states it was 177/101 at home this morning. Patient states it has been constant throughout the day. Patient states it is started to get better approximately 2 hours prior to arrival. Patient states nothing makes it better nothing makes it worse. Patient admits to some dizziness where she feels like she is off balance. Patient also admits to some rhinorrhea. Patient admits to a headache but states these are chronic for her. Patient denies any new headaches. Patient denies any paresthesias or weakness. Patient denies any chest pain or shortness of breath. [facility], [facility] Medical History Hypercholesteremia Hypertension Home Medications alprazolam 0.25 mg tablet 0.25 mg PO DAILY PRN PRN Anxiety 02/03/15 [History Last Taken 04/01/17 07:00] omeprazole 10 mg capsule,delayed release 40 mg PO DAILY gerd 02/03/15 [History Last Taken 04/01/17 07:00] atorvastatin 20 mg tablet 20 mg PO DAILY 04/02/20 [History Last Taken Unknown] hydrochlorothiazide 25 mg tablet 25 mg PO DAILY 01/09/22 [History Last Taken Unknown] Allergy/AdvReac Type Severity Reaction Status Date / Time lisinopril Allergy Angioedema Verified 01/09/22 13:40 acetaminophen [From Vicodin] AdvReac Abd Verified 01/09/22 13:40 cramps/diarrhea hydrocodone bitartrate AdvReac Abd Verified 01/09/22 13:40 [From Vicodin] cramps/diarrhea Penicillins AdvReac Diarrhea Verified 01/09/22 13:40 propoxyphene napsylate AdvReac Vomiting Verified 01/09/22 13:40 [From Darvocet-N] coated vitamins AdvReac Itching Uncoded 01/09/22 13:40 Surgical History H/O foot surgery History of adenoidectomy History of hip surgery History of tubal ligation Hx of tonsillectomy Social History Smoking Status: Never smoker ROS ROS ED Constitutional Constitutional ED: Denies chills or fever(s) Eyes Eyes: Denies blurry vision or change in vision ENT ENT ED: Reports rhinorrhea; Denies sore throat Cardiovascular Cardiovascular: Denies chest pain or palpitations Respiratory/Chest Respiratory/Chest: Denies cough or dyspnea Gastrointestinal Gastrointestinal: Denies nausea or vomiting Genitourinary Genitourinary ED: Denies dysuria or hematuria Musculoskeletal Musculoskeletal: Reports neck pain; Denies back pain Integumentary Denies abscess or rash Neurologic Neurologic: Reports headache(s); Denies weakness Allergic/Immunologic Allergic/Immunologic ED: Denies mouth swelling or urticaria EXAM Physical Exam Const Vital Signs: 01/09/22 13:39 01/09/22 13:50 01/09/22 14:22 Temperature 97.1 F L Temperature Source Temporal Pulse Rate 95 85 Respiratory Rate 14 19 H Respiratory Effort Normal Respiratory Pattern Normal Blood Pressure 155/92 H 141/84 H Blood Pressure Mean 113 103 Pulse Ox 97 95 Oxygen Delivery Method Room Air Room Air 01/09/22 14:38 Temperature Temperature Source Pulse Rate 88 Respiratory Rate 17 Respiratory Effort Respiratory Pattern Blood Pressure 133/69 H Blood Pressure Mean 90 Pulse Ox 95 Oxygen Delivery Method Room Air Positive well nourished, well developed and obese General Appearance ED: well developed and NAD Nutritional Appearance: obese HEENT Reports moist mucous membranes Neck supple and no JVD Resp normal respiratory effort and clear to auscultation bilaterally Cardio regular rate, regular rhythm and no murmurs GI normal to inspection, nondistended, normoactive bowel sounds and non-tender Palpation: soft Extremity normal to inspection General Extremety ED: Negative for edema or tenderness General Extremity: Negative for edema Neuro oriented x3, CN's II-XII intact bilaterally and no sensory deficits noted Sensorium / Orientation: alert Motor Exam: strength 5/5 throughout Psych mental status grossly normal Skin no rashes or lesions noted MDM MDM MDM Narrative Medical decision making narrative: EKG was obtained. On my interpretation, it showed a normal sinus rhythm with a rate of 85. [place] interval, QRS interval, and QTc intervals were all normal. [place] was normal. There are no acute ST or T wave changes. CBC was within normal limits. Basic metabolic profile was within normal limits. High-sensitivity troponin was normal. PA and lateral chest x-ray was obtained. There are 2 views. On my interpretation, lung ruiz showed some scarring in the left base. There is normal cardiac silhouette. Bony thorax is normal. There is no acute process noted. Radiologist also interpreted the x-ray and agrees. Patient was advised of her findings. Patient blood pressure remained stable here in the emergency department. Patient was instructed to continue to monitor her blood pressures. Patient was instructed to follow-up with her primary care physician in 5 to 7 days for reevaluation and further management of her blood pressure. Patient understood and was agreeable with the plan. All questions were answered. Lab Data Attestation: I reviewed the patient's lab results. Labs: Laboratory Results - last 24 hr 01/09/22 01/09/22 14:45 14:45 WBC 8.5 RBC 4.98 Hgb 13.2 Hct 40.5 MCV 81.3 MCH 26.5 L MCHC 32.6 RDW Std Deviation 39.8 RDW Coeff of Lin 13.7 Plt Count 253 MPV 11.0 Immature Gran % (Auto) 0.500 Neut % (Auto) 60.3 Lymph % (Auto) 29.5 Stone % (Auto) 9.0 Eos % (Auto) 0.5 Baso % (Auto) 0.2 Absolute Neuts (auto) 5.1 Absolute Lymphs (auto) 2.52 Nucleated RBC % 0 Sodium 140 Potassium 3.8 Chloride 106 Carbon Dioxide 28.0 Anion Gap 6 BUN 12 Creatinine 0.88 Estim Creat Clear Calc 64.46 Est GFR (MDRD) Af Amer 84 Est GFR (MDRD) Non-Af 69 BUN/Creatinine Ratio 13.7 Glucose 114 H Calcium 9.3 Troponin I High Sens 6 Radiography Chest X-Ray - ED: 2 View, Read by ED Physician, Read by Radiologist, No Acute Disease and Chronic Changes Diagnostic Testing: Clinical Impression(s) from Imaging Studies Chest X-Ray 01/09/22 14:50 IMPRESSION: Stable mild increased markings at the left lung base suggestive of scarring. Electronically Signed: Efren Yu MD at 15:13 EST , EKG Initial EKG: Attestation: I personally reviewed and interpreted this EKG as follows: Interpretation: Sinus Rhythm (85) and No Acute Injury Pattern Prior EKG tracings: available for review Prior: Unchanged (05/07/2018) Discharge Plan Triage Chief Complaint: Hypertension ED Provider: Pio Clay Dx/Rx/DC Orders Clinical Impression: Hypertension, Hypercholesterolemia Instructions: ED Hypertension, Established Prescriptions: No Action alprazolam 0.25 MG tablet 0.25 mg PO DAILY PRN PRN (Reason: Anxiety) omeprazole 10 MG capsule 40 mg PO DAILY atorvastatin 20 MG tablet 20 mg PO DAILY hydrochlorothiazide 25 mg tablet 25 mg PO DAILY Label Comments: TAKE 1 TABLET BY MOUTH ONCE DAILY Primary Care Provider: Foreign Du Referrals: Foreign Du MD [Primary Care Provider] - 5-7 Days Disposition Disposition: Home, Self Care
--- NOTE | 2022-01-09 14:30 | EKG12_ITS ---
Test Reason : HIGH BP, PRESSURE Blood Pressure : / mmHG Vent. Rate : 085 BPM Atrial Rate : 085 BPM P-R Int : 164 ms QRS Dur : 076 ms QT Int : 360 ms P-R-T Axes : 042 012 062 degrees QTc Int : 428 ms Normal sinus rhythm Normal ECG Confirmed by SHERI CASTREJON, PAUL ([id number]), content editor PAULA MCKEON ([id number]) on 01/14/2022 9:14:53 A M Referred By: MOUNIKA Confirmed By:WALTER WADE MD
[2022-01-09 14:38] VITALS: BP 133/69; PULSE 88; RESP 17; O2SAT 95
[2022-01-09 14:50] LABS: Absolute Lymphocyte Count 2.52 X10^3/uL (0.83-4.51); Absolute Neutrophil Count 5.1 X10^3/uL (2.0-7.7); Basophil# 0.02 X10^3/uL; Basophil% 0.2 % (0-1); Eosinophil# 0.04 X10^3/uL; Eosinophils% 0.5 % (0-5); Hematocrit 40.5 % (37-47); Hemoglobin 13.2 g/dL (12.0-15.0); Lymphocyte # 2.52 X10^3/ul (0.83-4.51); Lymphocyte % 29.5 % (19-41); Mean Corp Hgb Conc 32.6 g/dL (32-36); Mean Corpuscular Hgb 26.5 pg (27.0-32.0); Mean Corpuscular Volume 81.3 fL (81-99); Monocyte# 0.77 X10^3/uL; NRBC Flagged by Analyzer 0 % (0-5); Neutrophil # 5.14 X10^3/uL (2.7-7.7); Neutrophil % 60.3 % (47-70); Platelet Count 253 K/mm3 (150-450); RBC Distribution Width CV 13.7 % (11.6-14.6); RBC Distribution Width SD 39.8 fl (35.1-43.9); Red Blood Count 4.98 M/mm3 (4.2-5.4); White Blood Count 8.5 K/mm3 (4.4-11.0)
--- NOTE | 2022-01-09 14:50 | RAD_ITS ---
STUDY: X-RAY CHEST REASON FOR EXAM: Female, 61 years old. Hypertension TECHNIQUE: PA and lateral views of the chest. COMPARISON: Comparison is made with prior study of 05/07/2018. FINDINGS: EKG electrodes are seen. Stable mild increased linear markings at the left lung base suggestive of linear atelectasis. There is no demonstrated pleural abnormality. Normal size heart. Normal mediastinum and reyna. Normal visualized pulmonary arteries. There is atherosclerotic tortuosity of the aortic arch and descending thoracic aorta. There are degenerative changes of the visualized thoracic spine. Mild dextroscoliosis. Normal visualized ribs, clavicles, and shoulders. There is no demonstrated abnormality of the visualized soft tissue structures of the upper abdomen. RAD/Chest PA and Lateral IMPRESSION: Stable mild increased markings at the left lung base suggestive of scarring. Electronically Signed: Efren Yu MD at 15:13 EST ,
[2022-01-09 15:05] LABS: Anion Gap 6 (5-15); BUN 12 mg/dL (7-18); BUN/Creat Ratio 13.7 RATIO (10-20); Calcium,Total 9.3 mg/dL (8.5-10.1); Chloride 106 mmol/L (98-107); Creatinine, Serum 0.88 mg/dL (0.55-1.02); EST Glomerular Filtration Rate 69 mL/min (>60); Est Glom Filt Rate - Afr Amer 84 mL/min (>60); Estimated Creatinine Clearance 64.46 ml/min; Glucose 114 mg/dL (74-106); Potassium 3.8 mmol/L (3.5-5.1); Sodium Level 140 mmol/L (136-145); Troponin-I HS 6 pg/mL (3.0-54.0)
== END 2022-01-09 15:49 | disposition home or self-care (01) ==
PROVIDERS: Emergency Provider Emergency Medicine; PCP Family Medicine; Visit Provider Emergency Medicine
DX: I10 Essential (primary) hypertension (principal); E78.00 Pure hypercholesterolemia, unspecified; E66.9 Obesity, unspecified; Z79.899 Other long term (current) drug therapy
CPT/HCPCS: 71046; 80048; 84484; 85025; 93005; 99284; A4216

== ENCOUNTER 2022-05-06 07:33 | Emergency (ER) | payer SELFPAY ==
[2022-05-06 07:34] VITALS: BP 149/72; PULSE 68; RESP 14; TEMP 36.4; O2SAT 98; BMI 37.2
--- NOTE | 2022-05-06 08:16 | EKG12_ITS ---
Test Reason : CP Blood Pressure : / mmHG Vent. Rate : 063 BPM Atrial Rate : 063 BPM P-R Int : 202 ms QRS Dur : 080 ms QT Int : 444 ms P-R-T Axes : 045 005 071 degrees QTc Int : 454 ms Normal sinus rhythm Normal ECG Confirmed by EDNA CASTREJON, JAXON ([id number]), editor & co founder PAULA MCKEON ([id number]) on 05/08/2022 9:04:26 AM Referred By: ABDIRASHID Confirmed By:JAXON BISHOP MD
--- NOTE | 2022-05-06 08:16 | RAD_ITS ---
STUDY: X-RAY CHEST REASON FOR EXAM: Female, 62 years old. Chest pain TECHNIQUE: Single AP portable view of the chest. COMPARISON: Comparison is made with prior study dated January 09, 2022. FINDINGS: EKG electrodes are seen. Minimal increased markings at the left lung base suggestive of atelectasis. There is no demonstrated pleural abnormality. Normal size heart. Normal mediastinum and reyna. Normal visualized pulmonary arteries. There is atherosclerotic calcification of the aortic arch with tortuosity. Normal visualized thoracic spine. Normal visualized ribs, clavicles, and shoulders. There is no demonstrated abnormality of the visualized soft tissue structures of the upper abdomen. RAD/Chest 1 View (Portable) IMPRESSION: Stable minimal increased linear markings at the left lung base. Electronically Signed: Efren Yu MD at 8:49 EST ,
--- NOTE | 2022-05-06 08:17 | ED.VIS.CHEST ---
HPI History of Present Illness Chief Complaint: Chest Pain Informant: patient Onset/Context/Timing Onset: Hours (4 or so) Activity at onset: activity on onset and sleep Timing: Continuous and Waxes and wanes Quality: Positive for Pressure Location: Substernal (With radiating discomfort in left upper extremity and left neck) Current Severity: Mild Maximum Severity: Moderate Worsened By: Nothing; Not Worsened By Breathing Relieved By: Nothing Associated Symptoms: Negative for Nausea, Vomiting, Diaphoresis, Dyspnea, Cough, Fever, Lightheadedness or Palpitations Narrative Narrative: Patient woke up with chest discomfort that has been waxing and waning as a result all morning. She states as a result of all of this, she took a Xanax because she is a person that has panic attacks. She states it feels like her heart but she has no basis to know, she has never had any heart problems in the past, she was concerned about the symptoms however. Takes medication for blood pressure, cholesterol, GERD, anxiety. [facility] Medical History (Updated 05/06/22 @ 09:[address] Seamus Malcolm MD) Anxiety Hypercholesteremia Hypertension Home Medications alprazolam 0.25 mg tablet 0.25 mg PO DAILY PRN PRN Anxiety 02/03/15 [History Last Taken 04/01/17 07:00] omeprazole 10 mg capsule,delayed release 40 mg PO DAILY gerd 02/03/15 [History Last Taken 04/01/17 07:00] atorvastatin 20 mg tablet 20 mg PO DAILY 04/02/20 [History Last Taken Unknown] hydrochlorothiazide 25 mg tablet 25 mg PO DAILY 01/09/22 [History Last Taken Unknown] amlodipine 5 mg tablet 5 mg PO DAILY 05/06/22 [History Last Taken Unknown] Allergy/AdvReac Type Severity Reaction Status Date / Time lisinopril Allergy Angioedema Verified 05/06/22 07:37 acetaminophen [From Vicodin] AdvReac Abd Verified 05/06/22 07:37 cramps/diarrhea hydrocodone bitartrate AdvReac Abd Verified 05/06/22 07:37 [From Vicodin] cramps/diarrhea Penicillins AdvReac Diarrhea Verified 05/06/22 07:37 propoxyphene napsylate AdvReac Vomiting Verified 05/06/22 07:37 [From Darvocet-N] coated vitamins AdvReac Itching Uncoded 05/06/22 07:37 Surgical History H/O foot surgery History of adenoidectomy History of hip surgery History of tubal ligation Hx of tonsillectomy Social History Smoking Status: Former smoker ROS ROS ED Constitutional Constitutional ED: Denies chills or fever(s) Eyes Eyes: Denies change in vision or diplopia ENT ENT ED: Denies rhinorrhea or sore throat Cardiovascular Cardiovascular: Reports chest pain; Denies palpitations or racing heartbeat Respiratory/Chest Respiratory/Chest: Denies cough or dyspnea Gastrointestinal Gastrointestinal: Denies abdominal pain, diarrhea, nausea or vomiting Genitourinary Genitourinary ED: Denies dysuria or hematuria Musculoskeletal Musculoskeletal: Reports extremity pain; Denies back pain or neck pain Integumentary Denies abscess or rash Neurologic Neurologic: Denies headache(s), paresthesias or weakness Psychiatric Psychiatric: Denies anxiety or suicidal thoughts EXAM Physical Exam Const Vital Signs: 05/06/22 07:34 05/06/22 08:22 05/06/22 08:23 Temperature 97.5 F L Temperature Source Temporal Pulse Rate 68 66 Respiratory Rate 14 15 Respiratory Effort Blood Pressure 149/72 H 162/69 H Blood Pressure Mean 97 100 Pulse Ox 98 98 Oxygen Delivery Method Room Air Room Air Room Air 05/06/22 08:25 Temperature Temperature Source Pulse Rate Respiratory Rate Respiratory Effort Normal Non-Labored Blood Pressure Blood Pressure Mean Pulse Ox Oxygen Delivery Method Positive well nourished, well developed and obese General Appearance ED: well developed and NAD Nutritional Appearance: obese HEENT Reports moist mucous membranes normocephalic and atraumatic Eyes PERRL and EOMs intact bilaterally Neck full ROM and supple Resp normal respiratory effort and clear to auscultation bilaterally Cardio regular rate, regular rhythm and no murmurs GI non-tender and non-distended Auscultation: normoactive bowel sounds Palpation: soft Back/Spine no CVA tenderness Back/Spine Narrative: Small erythematous area left mid back with a tick attached to the center of this. No abscess, no active bleeding. The tick is not engorged, it is flat and does not look like a nymph, appears to be an adult. General Back: other FROM Extremity normal to inspection General Extremety ED: Negative for edema, pulses abnormal or tenderness General Extremity: Negative for edema or pulses abnormal Neuro oriented x3, CN's II-XII intact bilaterally and no sensory deficits noted Sensorium / Orientation: awake and alert Motor Exam: strength 5/5 throughout Psych mental status grossly normal Skin no rashes or lesions noted and no wounds Heart Score History: Moderately Suspicious ECG: Normal Age: >45 - <65 years Risk Factors: 1 or 2 Risk Factors Troponin: </= Normal Limit Score: 3 MDM MDM MDM Narrative Medical decision making narrative: And finding this tick on the patient's back, we had further discussion about that. [place] live [place] but has not been in them but yesterday or the day before, was in a barn that they have on her property. Also has a dog that got loose recently and was running around outside. Could have been from either of those sources. Even though does not appear to be engorged, it could have been there for 36 hours or more so given her 1 dose of doxycycline to prophylax against Lyme disease, otherwise it does not appear to be an issue there is no sign of infection just a small amount of erythema from irritation where the bite occurred. With regard to the patient's chest pain, her EKG is normal. Her enzymes are normal she has been having constant discomfort for multiple hours, I do not think we need to do a delta. The rest of her studies are normal. Chest x-ray 1 view on my interpretation also normal with chronic changes but no acute infiltrates or widened mediastinum. She was given a GI cocktail while we are doing these tasks, mostly because her EKG was under percent normal. She states her discomfort is a little better but still there. Esophageal spasm also in the differential diagnosis. She admits that she is very anxious and under a lot of stress. I offered a dose of Ativan, she would like it, she is okay being a little sleepy for the rest of the morning, and I am comfortable with her being discharged home afterwards. Daughter is taking her. History & Record Review Discussion w/independent historian: Family (Daughter) Lab Data Attestation: I reviewed the patient's lab results. Labs: Laboratory Results - last 24 hr 05/06/22 05/06/22 08:30 08:30 WBC 7.6 RBC 5.15 Hgb 13.4 Hct 41.5 MCV 80.6 L MCH 26.0 L MCHC 32.3 RDW Std Deviation 41.9 RDW Coeff of Lin 14.4 Plt Count 230 MPV 11.1 Immature Gran % (Auto) 0.400 Neut % (Auto) 59.5 Lymph % (Auto) 29.6 [place] % (Auto) 9.5 Eos % (Auto) 0.7 Baso % (Auto) 0.3 Absolute Neuts (auto) 4.5 Absolute Lymphs (auto) 2.25 Nucleated RBC % 0 Sodium 142 Potassium 3.8 Chloride 107 Carbon Dioxide 28.0 Anion Gap 7 BUN 13 Creatinine 1.00 Estim Creat Clear Calc 58.09 Est GFR (MDRD) Af Amer 72 Est GFR (MDRD) Non-Af 60 BUN/Creatinine Ratio 13.0 Glucose 102 Calcium 8.9 Troponin I High Sens 6 Radiography Diagnostic Testing: Clinical Impression(s) from Imaging Studies Chest X-Ray 05/06/22 08:16 IMPRESSION: Stable minimal increased linear markings at the left lung base. Electronically Signed: Efren Yu MD at 8:49 EST , Rhythm Strip Rhythm Strip: Sinus Rhythm Rate: 63 Ectopy: None EKG Initial EKG: Attestation: I personally reviewed and interpreted this EKG as follows: Interpretation: Sinus Rhythm and No Acute Injury Pattern Comments: nml EKG Prior EKG tracings: available for review Prior: Unchanged Procedures Other Procedures Procedure(s): Tick removal, left mid back: After isopropanol prep, using metal forceps and grabbing the tick at the site of insertion is close to the skin as possible, forcibly removing, verifying that there are legs it is indeed a tick, I was able to remove all of the portions of the mouth, swiped again with isopropanol and gauze, no complications tolerated well, dressed with bacitracin. Discharge Plan Triage Chief Complaint: Chest Pain ED Provider: Seamus Malcolm Dx/Rx/DC Orders Clinical Impression: Chest pain, unspecified, Anxiety Instructions: ED Chest Pain, Uncertain Cause Prescriptions: No Action alprazolam 0.25 MG tablet 0.25 mg PO DAILY PRN PRN (Reason: Anxiety) omeprazole 10 MG capsule 40 mg PO DAILY atorvastatin 20 MG tablet 20 mg PO DAILY hydrochlorothiazide 25 mg tablet 25 mg PO DAILY Label Comments: TAKE 1 TABLET BY MOUTH ONCE DAILY amlodipine 5 mg tablet 5 mg PO DAILY Label Comments: TAKE 1 TABLET BY MOUTH ONCE DAILY Primary Care Provider: Foreign Du Referrals: Foreign Du MD [Primary Care Provider] - 1 Week Disposition Disposition: Home, Self Care
[2022-05-06 08:22] VITALS: BP 162/69; PULSE 66; RESP 15; O2SAT 98
[2022-05-06 08:38] LABS: Absolute Lymphocyte Count 2.25 X10^3/uL (0.83-4.51); Absolute Neutrophil Count 4.5 X10^3/uL (2.0-7.7); Basophil# 0.02 X10^3/uL; Basophil% 0.3 % (0-1); Eosinophil# 0.05 X10^3/uL; Eosinophils% 0.7 % (0-5); Hematocrit 41.5 % (37-47); Hemoglobin 13.4 g/dL (12.0-15.0); Lymphocyte # 2.25 X10^3/ul (0.83-4.51); Lymphocyte % 29.6 % (19-41); Mean Corp Hgb Conc 32.3 g/dL (32-36); Mean Corpuscular Volume 80.6 fL (81-99); Mean Platelet Vol. 11.1 fl (6.2-12.0); Monocyte# 0.72 X10^3/uL; Monocyte% 9.5 % (0-10); NRBC Flagged by Analyzer 0 % (0-5); Neutrophil # 4.53 X10^3/uL (2.7-7.7); Neutrophil % 59.5 % (47-70); Platelet Count 230 K/mm3 (150-450); RBC Distribution Width CV 14.4 % (11.6-14.6); RBC Distribution Width SD 41.9 fl (35.1-43.9); Red Blood Count 5.15 M/mm3 (4.2-5.4); White Blood Count 7.6 K/mm3 (4.4-11.0)
[2022-05-06] MEDS: Doxycycline 100 MG CAPSULE 200 MG PO (08:49)
[2022-05-06] MEDS: Mag Hydrox/Al Hydrox/Simeth 30 ML UDC PO (08:49)
[2022-05-06 08:57] LABS: Anion Gap 7 (5-15); BUN 13 mg/dL (7-18); Calcium,Total 8.9 mg/dL (8.5-10.1); Chloride 107 mmol/L (98-107); EST Glomerular Filtration Rate 60 mL/min (>60); Est Glom Filt Rate - Afr Amer 72 mL/min (>60); Estimated Creatinine Clearance 58.09 ml/min; Glucose 102 mg/dL (74-106); Potassium 3.8 mmol/L (3.5-5.1); Sodium Level 142 mmol/L (136-145); Troponin-I HS (w/2H Reflex) 6 pg/mL (3.0-54.0)
[2022-05-06] MEDS: LORazepam 2 MG/ML Syringe 0.5 MG IV (10:03)
[2022-05-06 10:06] VITALS: BP 145/75; PULSE 55
[2022-05-06 10:36] LABS: Reflex Troponin-HS? (from REC) Y
== END 2022-05-06 10:06 | disposition home or self-care (01) ==
PROVIDERS: Emergency Provider Emergency Medicine; PCP Family Medicine; Visit Provider Emergency Medicine
DX: R07.9 Chest pain, unspecified (principal); E78.00 Pure hypercholesterolemia, unspecified; F41.9 Anxiety disorder, unspecified; I10 Essential (primary) hypertension; E66.9 Obesity, unspecified; Z87.891 Personal history of nicotine dependence; S20.452A Superficial foreign body of left back wall of thorax, initial encounter; S20.462A Insect bite (nonvenomous) of left back wall of thorax, initial encounter; W57.XXXA Bitten or stung by nonvenomous insect and other nonvenomous arthropods, initial encounter
CPT/HCPCS: 71045; 80048; 84484; 85025; 93005; 96374; 99283; A4216

== ENCOUNTER → 2022-11-19 | Outpatient (CLI) | payer SELFPAY ==
[2022-11-19 17:52] LABS: Absolute Lymphocyte Count 2.86 X10^3/uL (0.83-4.51); Absolute Neutrophil Count 4.8 X10^3/uL (2.0-7.7); Basophil# 0.03 X10^3/uL; Basophil% 0.3 % (0-1); Eosinophil# 0.03 X10^3/uL; Eosinophils% 0.3 % (0-5); Hemoglobin 13.7 g/dL (12.0-15.0); Lymphocyte # 2.86 X10^3/ul (0.83-4.51); Lymphocyte % 33.2 % (19-41); Mean Corp Hgb Conc 31.9 g/dL (32-36); Mean Corpuscular Hgb 26.2 pg (27.0-32.0); Mean Corpuscular Volume 82.4 fL (81-99); Mean Platelet Vol. 11.3 fl (6.2-12.0); Monocyte# 0.84 X10^3/uL; Monocyte% 9.8 % (0-10); NRBC Flagged by Analyzer 0 % (0-5); Neutrophil # 4.83 X10^3/uL (2.7-7.7); Neutrophil % 56.2 % (47-70); Platelet Count 272 K/mm3 (150-450); RBC Distribution Width CV 14.5 % (11.6-14.6); RBC Distribution Width SD 43.2 fl (35.1-43.9); Red Blood Count 5.22 M/mm3 (4.2-5.4); White Blood Count 8.6 K/mm3 (4.4-11.0)
[2022-11-19 18:19] LABS: AST(SGOT) 19 U/L (15-37); Alanine Aminotransfer ALT/SGPT 29 U/L (13-56); Albumin, Serum 3.6 g/dL (3.2-5.0); Alkaline Phosphatase 130 U/L (45-117); Anion Gap 6 (5-15); BUN 9 mg/dL (7-18); BUN/Creat Ratio 9.3 RATIO (10-20); Calcium,Total 8.8 mg/dL (8.5-10.1); Chloride 108 mmol/L (98-107); Cholesterol 150 mg/dL (200); Creatinine, Serum 0.97 mg/dL (0.55-1.02); EST Glomerular Filtration Rate 61 mL/min (>60); Est Glom Filt Rate - Afr Amer 74 mL/min (>60); Globulin 3.7 g/dL (2.2-4.2); Glucose 88 mg/dL (74-106); High Density Lipoprotein 43 mg/dL; Potassium 3.5 mmol/L (3.5-5.1); Protein, Total 7.3 g/dL (6.4-8.2); Sodium Level 141 mmol/L (136-145); Thyroid Stim Hormone (TSH) 2.01 uIU/mL (0.358-3.74); Triglycerides 114 mg/dL; Very Low Density Lipoprotein 23 mg/dL (5-40)
[2022-11-19 18:45] LABS: Hepatitis C Antibody Non-Reactive (Nonreactive); Vitamin D,25 Hydroxy 32.4 ng/mL
== END | disposition home or self-care (01) ==
LOC: POLAB3 17:29
PROVIDERS: PCP Family Medicine; Visit Provider Family Medicine Geriatric Medicine
DX: Z00.00 Encounter for general adult medical examination without abnormal findings (principal); I10 Essential (primary) hypertension; R53.83 Other fatigue; E78.5 Hyperlipidemia, unspecified; E55.9 Vitamin D deficiency, unspecified
CPT/HCPCS: 36415; 80053; 80061; 82306; 84443; 85025; 86803

== ENCOUNTER 2023-12-16 09:21 | Emergency (ER) | payer SELFPAY ==
[2023-12-16 09:22] VITALS: BP 195/99; PULSE 72; RESP 15; TEMP 36.4; O2SAT 98; BMI 37.7
--- NOTE | 2023-12-16 09:26 | ED.RN ---
Dr. Anderson bedside
--- NOTE | 2023-12-16 09:32 | ED.RN ---
Patient transported to xray
--- NOTE | 2023-12-16 09:34 | RAD_ITS ---
HISTORY Injury/Pain. TECHNIQUE: XR Hip Unilateral with Pelvis when performed; 2-3 Views. COMPARISON: 04/01/2017. FINDINGS: BONES : No acute fracture identified. No abnormal periprosthetic lucency seen. JOINTS: Left hip in place without dislocation. Mild degenerative changes of the right hip. RAD/HIP, UNI W/ Pelvis 2-3 Views IMPRESSION: Left hip arthroplasty without acute fracture or dislocation identified. Electronically Signed: Lis Rizvi MD at 10:23 EDT ,
--- NOTE | 2023-12-16 09:34 | EDS_ITS ---
HPI History of Present Illness Chief Complaint: Lower Extremity Injury Detail of Chief Complaint: Atraumatic left hip pain Informant: patient Occured/Mechanism Comment: Atraumatic left hip pain. Onset/Context/Timing Onset: Yesterday Context: Sudden Onset Timing: Continuous Quality of Pain: Dull Location: Left inguinal area Current Severity: Mild Maximum Severity: Moderate Worsened by: Weightbearing and certain movements Relieved by: Nothing Associated Symptoms Associated Symptoms: Negative for Parasthesia, Weakness or Loss of Funtion Narrative Narrative: Patient is a 63-year-old woman status post left total hip arthroplasty [address] Sergo Rai. She presents because of atraumatic left hip pain that she localizes in the left inguinal area. She has pain with movement. She walks with a limp. There is no history of direct or indirect trauma. She denies symptoms of claudication. She denies fever, chills night sweats. She does have a history of essential hypertension, osteoarthritis left hip and hypercholesterolemia. Patient was reluctant to come in. Daughter convinced her to come in because this may result in more problems if she waits. Prior similar symptoms: Yes Recent Illness/Hospitalization: No PFSH [facility], [facility] Medical History Anxiety Hypercholesteremia Hypertension Home Medications ?Medication ?Instructions ?Recorded ?Last Taken ?Type alprazolam 0.25 mg tablet 0.25 mg PO DAILY PRN PRN Anxiety 02/03/15 12/16/23 History omeprazole 10 mg capsule,delayed 40 mg PO DAILY gerd 02/03/15 12/16/23 History release hydrocodone-acetaminophen 5-325mg 1 tab PO Q6H PRN PRN Pain 3 days 12/16/23 Unknown Rx 5mg-325mg #10 TABLETS Allergy/AdvReac Type Severity Reaction Status Date / Time lisinopril Allergy Angioedema Verified 12/16/23 09:23 acetaminophen (From Vicodin) AdvReac Abd Verified 12/16/23 09:23 cramps/diarrhea hydrocodone bitartrate (From AdvReac Abd Verified 12/16/23 09:23 Vicodin) cramps/diarrhea Penicillins AdvReac Diarrhea Verified 12/16/23 09:23 propoxyphene napsylate (From AdvReac Vomiting Verified 12/16/23 09:23 Darvocet-N) coated vitamins AdvReac Itching Uncoded 05/06/22 07:37 Surgical History History of hip surgery History of adenoidectomy Hx of tonsillectomy H/O foot surgery History of tubal ligation Social History Smoking Status: Former smoker ROS ROS ED Constitutional Constitutional ED: Denies chills, fever(s), subjective or weight loss Genitourinary Genitourinary ED: Denies dysuria, hematuria or urinary frequency Musculoskeletal Musculoskeletal: Denies arthralgias, back pain or myalgias Integumentary Denies rash Neurologic Neurologic: Denies paresthesias or weakness Hematologic/Lymphatic Hematologic/Lymphatic: Denies easy bleeding or easy bruising EXAM Physical Exam Const Vital Signs: 12/16/23 09:22 Temperature 97.6 F L Temperature Source Temporal Pulse Rate 72 Respiratory Rate 15 Blood Pressure 195/99 H Blood Pressure Mean 131 Pulse Ox 98 Oxygen Delivery Method Room Air Positive well nourished and well developed Constitutional Narrative: Patient walks with a limp. She has slight discomfort with weightbearing on the left side. General Appearance ED: well developed HEENT Reports moist mucous membranes normocephalic and atraumatic Eyes PERRL Resp normal respiratory effort Cardio regular rate and regular rhythm GI non-tender and non-distended GI Narrative: There is no inguinal lymphadenopathy. There is no inguinal mass. Femoral pulses palpable. Back/Spine no CVA tenderness Extremity normal to inspection and full ROM Extremity Narrative: Logrolling causes discomfort in the left inguinal area. Alexandro Judith 4 test causes pain in the left inguinal area. There is no shortening. Patient does have hair on her foot and toes. DP and PT pulse are palpable and symmetric. E HL intact. Normal sensation L3-S1 dermatome. There is no rash or groin lesions noted. Neuro oriented x3, CN's II-XII intact bilaterally, moves all extremities and no sensory deficits noted Sensorium / Orientation: alert Motor Exam: strength 5/5 throughout Plantar Reflex: Downgoing: bilateral Psych mental status grossly normal Skin no wounds Lesions: no lesions Rashes: no rashes MDM MDM MDM Narrative Medical decision making narrative: Will obtain x-ray to determine if there is any deterioration or malposition of the acetabular or femoral head component. Will compare to prior x-rays. Patient was medicated with hydrocodone and acetaminophen. Laboratory tests were not done since she has no constitutional symptoms and at this point there is no concern for infection. History & Record Review Additional record(s) reviewed:: Prior inpatient record (Left hip arthroplasty by Dr. Sergo Rai.) and Prior ED visit Radiography Chest X-Ray - ED: Read by ED Physician (Three-view x-ray of the left hip was obtained. There is no acute process. There is unchanged from x-ray obtained in 2018. Normal-appearing x-ray status post left total hip arthroplasty.) Treatment and Re-Evaluation Narrative: Patient was informed of results. She was instructed to follow-up with Dr. Goins. She is scheduled to see him apparently next year. Her vital signs were remarkable for elevated blood pressure 195/99. This may be due to pain. This will need to be rechecked. Discharge Plan Triage Chief Complaint: Lower Extremity Injury ED Provider: Ernie Anderson Dx/Rx/DC Orders Clinical Impression: Acute pain of left hip, History of total left hip arthroplasty, Elevated blood- pressure reading without diagnosis of hypertension Instructions: ED Hypertension, To Be Confirmed, ED RICE Prescriptions: New hydrocodone-acetaminophen 5-325 mg tablet 1 tab PO Q6H PRN PRN (Reason: Pain) 3 Days Qty: 10 0RF No Action alprazolam 0.25 MG tablet 0.25 mg PO DAILY PRN PRN (Reason: Anxiety) omeprazole 10 MG capsule 40 mg PO DAILY Primary Care Provider: Foreign Du Referrals: Foreign Du MD [Primary Care Provider] - 1-2 Weeks Print Language: Monegasque Disposition Disposition: Home, Self Care
[2023-12-16] MEDS: HYDROcodone Bitartrate/Apap 5/325 Tablet PO (09:53)
[2023-12-16 10:06] VITALS: BP 167/83; PULSE 68; RESP 19; TEMP 36.3; O2SAT 100
== END 2023-12-16 10:09 | disposition home or self-care (01) ==
LOC: ED 10:01
PROVIDERS: Emergency Provider Emergency Medicine; PCP Family Medicine; Visit Provider Emergency Medicine
DX: M25.552 Pain in left hip (principal); I10 Essential (primary) hypertension; Z96.642 Presence of left artificial hip joint; Z87.891 Personal history of nicotine dependence
CPT/HCPCS: 73502; 99282

== ENCOUNTER 2024-02-21 07:00 | Emergency (ER) | payer SELFPAY ==
[2024-02-21 07:02] VITALS: BP 193/79; PULSE 64; RESP 16; TEMP 36.7; O2SAT 97; BMI 39.2
--- NOTE | 2024-02-21 07:07 | ED.RN ---
PT RECENTLY LOST HER . SHE SAID SHE KEKE VERY VIVID DREAMS AND HAD ONE LAST IGHT. SHE FELL OUT OF HER BED AROUND 0100 AND INJURED HER RIBS. HAVING PAIN WITH MOVEMENT AND DEEP BREATHING.
--- NOTE | 2024-02-21 07:28 | EDS_ITS ---
HPI History of Present Illness Chief Complaint: Chest Other Informant: patient Onset/Context/Timing Onset: Today Mechanism/Context: Fall Quality of Pain: Sharp (With movement) and Dull (At rest) Location: Left lower ribs Worsened by: Movement Relieved by: Nothing Associated Symptoms Associated Symptoms: Negative for Parasthesias, Weakness, Loss of function, Inability to ambulate, Loss of consciousness or Amnesia Narrative Narrative: Patient presents with left rib pain that began after a fall. Patient states she was having a nightmare and fell out of bed. Patient states she landed on the floor on her left side. Patient describes her pain as dull but is sharp with movements. Patient states her pain is worse with any movement. Patient states nothing seems to help with it. Patient denies any head injury or loss of consciousness. Patient denies any paresthesias or weakness. Patient denies any other injuries. [facility] Medical History (Updated 02/21/24 @ 08:[address] Pio Clay, DO) GERD (gastroesophageal reflux disease) Anxiety Hypercholesteremia Hypertension Home Medications ?Medication ?Instructions ?Recorded ?Last Taken ?Type alprazolam 0.25 mg tablet 0.25 mg PO DAILY PRN PRN Anxiety 02/03/15 12/16/23 History omeprazole 10 mg capsule,delayed 40 mg PO DAILY gerd 02/03/15 12/16/23 History release hydrocodone-acetaminophen 5-325mg 1 tab PO Q6H PRN PRN Pain 3 days 12/16/23 Unknown Rx 5mg-325mg #10 TABLETS Allergy/AdvReac Type Severity Reaction Status Date / Time lisinopril Allergy Angioedema Verified 02/21/24 07:08 acetaminophen (From Vicodin) AdvReac Abd Verified 02/21/24 07:08 cramps/diarrhea hydrocodone bitartrate (From AdvReac Abd Verified 02/21/24 07:08 Vicodin) cramps/diarrhea Penicillins AdvReac Diarrhea Verified 02/21/24 07:08 propoxyphene napsylate (From AdvReac Vomiting Verified 02/21/24 07:08 Darvocet-N) coated vitamins AdvReac Itching Uncoded 05/06/22 07:37 Surgical History (Updated 02/21/24 @ 07:[address] Pio Clay, DO) History of endometrial ablation Hx of dilation and curettage History of hip surgery History of adenoidectomy Hx of tonsillectomy H/O foot surgery History of tubal ligation Social History Smoking Status: Former smoker ROS ROS ED Constitutional Constitutional ED: Denies chills or fever(s) Eyes Eyes: Denies blurry vision or change in vision ENT ENT ED: Reports rhinorrhea; Denies sore throat Cardiovascular Cardiovascular: Reports chest pain; Denies palpitations Respiratory/Chest Respiratory/Chest: Denies cough or dyspnea Gastrointestinal Gastrointestinal: Reports nausea; Denies vomiting Genitourinary Genitourinary ED: Denies dysuria or hematuria Musculoskeletal Musculoskeletal: Reports neck pain; Denies back pain Integumentary Denies abscess or rash Neurologic Neurologic: Reports headache(s); Denies weakness Allergic/Immunologic Allergic/Immunologic ED: Denies mouth swelling or urticaria EXAM Physical Exam Const Vital Signs: 02/21/24 07:02 02/21/24 07:06 Temperature 98.1 F Temperature Source Oral Pulse Rate 64 Respiratory Rate 16 Respiratory Effort Normal Blood Pressure 193/79 H Blood Pressure Mean 117 Pulse Ox 97 Oxygen Delivery Method Room Air Positive well nourished and well developed General Appearance ED: well developed and NAD HEENT atraumatic Neck full ROM Chest Wall Chest Narrative: There is tenderness over the posterior lateral aspect of the left lower ribs. There is no bony crepitance or step-off. There is no subcutaneous emphysema noted. Resp normal respiratory effort and clear to auscultation bilaterally Cardio regular rhythm Rate: regular rate GI non-tender and non-distended Palpation: soft Neuro oriented x3, CN's II-XII intact bilaterally, moves all extremities, no focal motor deficits and no sensory deficits noted [place] Coma Scale: document GCS findings Spontaneous Obeys Commands Oriented 15 Sensorium / Orientation: alert Motor Exam: strength 5/5 throughout Psych mental status grossly normal and thought process normal MDM MDM MDM Narrative Medical decision making narrative: Differential diagnosis includes contusion, fracture, and pneumothorax. X-rays of the left ribs will be obtained to assess for rib fracture and pneumothorax. Radiography Diagnostic Testing: Clinical Impression(s) from Imaging Studies Ribs w/Chest X-Ray 02/21/24 07:49 IMPRESSION: RIBS: No demonstrated acute displaced rib fracture or pleural thickening. No pneumothorax CHEST: No acute pulmonary process Electronically Signed: Sathish Berumen MD at 8:21 EST , X-rays of the left ribs were obtained. There are 5 views. On my independent interpretation, there is no acute fracture. There is no pneumothorax. There is no acute process noted. Radiologist also interpreted the x-rays and agrees. Treatment and Re-Evaluation Narrative: Patient was given injection of morphine here. Patient was advised of her findings. Patient was instructed to take Tylenol or ibuprofen as needed for pain. Patient was instructed to follow-up with her primary care physician in 5 to 7 days. Patient was instructed return if worse in any way. Patient understood and was agreeable with the plan. All questions were answered. Discharge Plan Triage Chief Complaint: Chest Other Other Complaint: Lower Extremity Injury ED Provider: Pio Clay Dx/Rx/DC Orders Clinical Impression: Contusion of left chest wall, Fall Instructions: ED Chest Wall Contusion Prescriptions: No Action alprazolam 0.25 MG tablet 0.25 mg PO DAILY PRN PRN (Reason: Anxiety) omeprazole 10 MG capsule 40 mg PO DAILY hydrocodone-acetaminophen 5-325 mg tablet 1 tab PO Q6H PRN PRN (Reason: Pain) 3 Days Qty: 10 0RF Primary Care Provider: Foreign Du Referrals: Foreign Du MD [Primary Care Provider] - 5-7 Days Print Language: Syriac Disposition Disposition: Home, Self Care
[2024-02-21] MEDS: Morphine 4 MG/ML Syringe IM (07:44)
--- NOTE | 2024-02-21 07:49 | RAD_ITS ---
STUDY: X-RAY - UNILATERAL RIBS ( LEFT ) WITH CHEST REASON FOR EXAM: Female, 63 years old. Trauma TECHNIQUE - RIBS: 4 view(s) of the ribs. TECHNIQUE - CHEST: Single PA view of the chest. COMPARISON: 05/06/2022 FINDINGS - RIBS: Normal visualized ribs without a demonstrated fracture. FINDINGS - CHEST: The lungs are clear and expanded. There is no demonstrated pleural abnormality. Normal size heart. Normal mediastinum and reyna. Normal visualized pulmonary arteries. Normal visualized aortic arch and descending thoracic aorta. There are diffuse degenerative changes of the visualized thoracic spine. Normal visualized ribs, clavicles, and shoulders. There is no demonstrated abnormality of the visualized soft tissue structures of the upper abdomen. RAD/Ribs Uni Min 3V w/PA Chest IMPRESSION: RIBS: No demonstrated acute displaced rib fracture or pleural thickening. No pneumothorax CHEST: No acute pulmonary process Electronically Signed: Sathish Berumen MD at 8:21 EST ,
[2024-02-21 08:52] VITALS: BP 164/83; PULSE 63; RESP 18; TEMP 36.6; O2SAT 98
== END 2024-02-21 09:00 | disposition home or self-care (01) ==
PROVIDERS: Emergency Provider Emergency Medicine; PCP Family Medicine; Visit Provider Emergency Medicine
DX: S20.212A Contusion of left front wall of thorax, initial encounter (principal); W06.XXXA Fall from bed, initial encounter; Y93.84 Activity, sleeping; Z87.891 Personal history of nicotine dependence
CPT/HCPCS: 71101; 96372; 99283

== ENCOUNTER → 2024-05-02 | Outpatient (CLI) | payer MEDICARE, OTHER, SELFPAY ==
--- NOTE | 2024-05-02 08:02 | EKG12_ITS ---
Test Reason : PREOP Blood Pressure : */* mmHG Vent. Rate : 63 BPM Atrial Rate : 63 BPM P-R Int : 150 ms QRS Dur : 74 ms QT Int : 420 ms P-R-T Axes : 41 12 76 degrees QTcB Int : 429 ms Normal sinus rhythm Normal ECG Confirmed by Nic Fitzgerald ([id number]), editor house organ PAULA MCKEON ([id number]) on 05/02/2024 10:56:18 AM Referred By: Sergo Rai Confirmed By: Nic Fitzgerald
[2024-05-02 09:07] LABS: Absolute Lymphocyte Count 1.74 X10^3/uL (0.83-4.51); Absolute Neutrophil Count 4.5 X10^3/uL (2.0-7.7); Basophil# 0.03 X10^3/uL; Basophil% 0.4 % (0-1); Eosinophil# 0.01 X10^3/uL; Eosinophils% 0.1 % (0-5); Hematocrit 43.2 % (37-47); Hemoglobin 14.4 g/dL (12.0-15.0); Lymphocyte # 1.74 X10^3/ul (0.83-4.51); Mean Corp Hgb Conc 33.3 g/dL (32-36); Mean Corpuscular Hgb 27.4 pg (27.0-32.0); Mean Corpuscular Volume 82.1 fL (81-99); Mean Platelet Vol. 10.2 fl (6.2-12.0); NRBC Flagged by Analyzer 0 % (0-5); Neutrophil # 4.47 X10^3/uL (2.7-7.7); Neutrophil % 64.2 % (47-70); Platelet Count 267 K/mm3 (150-450); RBC Distribution Width SD 41.2 fl (35.1-43.9); Red Blood Count 5.26 M/mm3 (4.2-5.4)
[2024-05-02 09:46] LABS: Albumin, Serum 3.8 g/dL (3.4-4.8); Anion Gap 10 (5-15); BUN 10 mg/dL (4-19); BUN/Creat Ratio 11.3 RATIO (10-20); Calcium 8.8 mg/dL (7.6-11.0); Carbon Dioxide 23.9 mmol/L (22.0-29.0); Chloride 104 mmol/L (96-108); Creatinine, Serum 0.91 mg/dL (0.70-1.20); EST Glomerular Filtration Rate 70 (>60); Glucose 93 mg/dL (70-99); Potassium 4.1 mmol/L (3.3-5.1); Sodium Level 138 mmol/L (133-145)
== END | disposition home or self-care (01) ==
PROVIDERS: PCP Family Medicine; Referring Provider Specialist; Visit Provider Specialist
DX: Z01.810 Encounter for preprocedural cardiovascular examination (principal); M16.11 Unilateral primary osteoarthritis, right hip
CPT/HCPCS: 36415; 80048; 82040; 85025; 93005

== ENCOUNTER 2024-05-14 07:32 | Emergency (ER) | payer MEDICARE, OTHER, SELFPAY ==
[2024-05-14 07:33] VITALS: BP 146/67; PULSE 70; RESP 16; TEMP 36.4; O2SAT 99
[2024-05-14 07:42] VITALS: BMI 40.9
[2024-05-14 07:43] VITALS: BP 147/65; PULSE 69; RESP 18; TEMP 36.4; O2SAT 95
--- NOTE | 2024-05-14 08:06 | EDS_ITS ---
HPI History of Present Illness HPI Narrative: Patient presents with right hip pain that became worse today. Patient states it began yesterday. Patient states it is gradually gotten worse. Patient had recent total hip replacement. Patient states her pain is worse with sitting and weightbearing. Patient admits to some paresthesias in her right leg but states she had an epidural anesthesia for her hip replacement and she has been having paresthesias since the surgery. Patient states nothing is different. Patient denies any falls or trauma. Patient called her surgeon who referred her to the emergency department to assess for fracture or dislocation. Patient and family deny any leg length discrepancies. Chief Complaint: Lower Extremity Injury Informant: patient and family Onset/Context/Timing Onset: Yesterday Context: Gradual Onset Timing: Continuous Quality of Pain: Burning Location: Right hip and thigh Worsened by: Sitting, weightbearing Relieved by: Nothing Associated Symptoms Associated Symptoms: Positive for Parasthesia; Negative for Weakness or Loss of Funtion PFSH PFSH Medical History (Updated 05/14/24 @ 10:[address] Pio Clay, DO) Hip replacement planned Hip replacement planned GERD (gastroesophageal reflux disease) Anxiety Hypercholesteremia Hypertension Home Medications ?Medication ?Instructions ?Recorded ?Last Taken ?Type alprazolam 0.25 mg tablet 0.25 mg PO DAILY PRN PRN Anx iety 02/03/15 12/16/23 History omeprazole 10 mg capsule,delayed 40 mg PO DAILY gerd 1 04/06/14 12/16/23 History release hydrocodone-acetaminophen 5-325mg 1 tab PO Q6H PRN PRN Pain 3 days 12/16/23 Unknown Rx 5mg-325mg #10 TABLETS Allergy/AdvReac Type Severity Reaction Status Date / Time lisinopril Allergy Angioedema Verified 05/14/24 07:32 acetaminophen (From Vicodin) AdvReac Abd Verified 05/14/24 07:32 cramps/diarrhea hydrocodone bitartrate (From AdvReac Abd Verified 05/14/24 07:32 Vicodin) cramps/diarrhea Penicillins AdvReac Diarrhea Verified 05/14/24 07:32 propoxyphene napsylate (From AdvReac Vomiting Verified 05/14/24 07:32 Darvocet-N) coated vitamins AdvReac Itching Uncoded 05/06/22 07:37 Surgical History (Updated 05/14/24 @ 08:[address] Pio Clay DO) History of total right hip replacement History of endometrial ablation Hx of dilation and curettage History of hip surgery History of adenoidectomy Hx of tonsillectomy H/O foot surgery History of tubal ligation Social History Smoking Status: Former smoker ROS ROS ED Constitutional Constitutional ED: Denies chills or fever(s) Eyes Eyes: Denies blurry vision or change in vision ENT ENT ED: Reports rhinorrhea; Denies sore throat Cardiovascular Cardiovascular: Denies chest pain or palpitations Respiratory/Chest Respiratory/Chest: Denies cough or dyspnea Gastrointestinal Gastrointestinal: Denies nausea or vomiting Genitourinary Genitourinary ED: Denies dysuria or hematuria Musculoskeletal Musculoskeletal: Reports neck pain; Denies back pain Integumentary Denies abscess or rash Neurologic Neurologic: Reports headache(s); Denies weakness Allergic/Immunologic Allergic/Immunologic ED: Denies mouth swelling or urticaria EXAM Physical Exam Const Vital Signs: 05/14/24 07:33 05/14/24 07:43 05/14/24 08:36 Temperature 97.5 F L 97.6 F L 98.7 F Temperature Source Temporal Oral Oral Pulse Rate 70 69 71 Respiratory Rate 16 18 18 Blood Pressure 146/67 H 147/65 H 138/66 H Blood Pressure Mean 93 92 90 Pulse Ox 99 95 95 Oxygen Delivery Method Room Air Room Air 05/14/24 09:05 05/14/24 10:00 Temperature 98.7 F 98.7 F Temperature Source Oral Oral Pulse Rate 66 61 Respiratory Rate 18 18 Blood Pressure 133/70 H 136/61 H Blood Pressure Mean 91 86 Pulse Ox Oxygen Delivery Method Positive well nourished and well developed Constitutional Narrative: BMI is 41.0 General Appearance ED: well developed HEENT Reports moist mucous membranes Neck full ROM and supple Extremity Extremity Narrative: There is tenderness over the right hip. There is no deformity noted. Incision is well-healing. There is no erythema or drainage noted. Range of motion was limited in all motions of the right hip secondary to pain. There is no pain with internal or external rotation. Pedal pulses are equal bilaterally. Sensation was intact to light touch bilaterally in the lower extremities. Strength is 5/5 bilaterally in the lower extremities. There is no calf tenderness noted. There is no peripheral edema noted. General Extremety ED: Yes weight-bearing difficulty General Extremity: weight-bearing difficulty Neuro oriented x3, CN's II-XII intact bilaterally, moves all extremities and no sensory deficits noted Sensorium / Orientation: alert Motor Exam: strength 5/5 throughout Psych mental status grossly normal MDM MDM MDM Narrative Medical decision making narrative: Differential diagnosis includes fracture, dislocation, and muscle strain. X- rays of the right hip will be obtained to assess for fracture and dislocation. Radiography X-Ray: Right Hip, Read by ED Physician, Read by Radiologist, No Fracture and Normal Bony Alignment Diagnostic Testing: Clinical Impression(s) from Imaging Studies Hip/Pelvis X-Ray 05/14/24 08:30 IMPRESSION: Intact right hip prosthesis without complicating features. Negative for acute displaced fracture or dislocation. Soft tissue emphysema along the lateral subcutaneous tissues. Reading Location: [facility] X-rays of the right hip were obtained. There are 3 views. On my independent interpretation, there is no acute fracture or dislocation. Radiologist also interpreted the x-rays and agrees. Treatment and Re-Evaluation Narrative: Patient was given injection of morphine here. Patient and family were advised of the findings. Case was discussed with Dr. Rai. No further recommendations. He felt that the pain was due to the epidural anesthesia wearing off. He recommended having the patient follow-up with her physical therapy as scheduled. Patient and family understood and were agreeable with the plan. All questions were answered. Discharge Plan Triage Chief Complaint: Lower Extremity Injury ED Provider: Pio Clay Dx/Rx/DC Orders Clinical Impression: Acute postoperative pain of right hip Instructions: ED Post Op Wound Check, Pain Prescriptions: No Action alprazolam 0.25 MG tablet 0.25 mg PO DAILY PRN PRN (Reason: Anxiety) omeprazole 10 MG capsule 40 mg PO DAILY hydrocodone-acetaminophen 5-325 mg tablet 1 tab PO Q6H PRN PRN (Reason: Pain) 3 Days Qty: 10 0RF Primary Care Provider: Foreign Du Referrals: Sergo Rai MD [Med Staff - Active Staff] - Keep [facility] appointment Foreign Du MD [Primary Care Provider] - 5-7 Days Print Language: Greek Disposition Disposition: Home, Self Care
[2024-05-14] MEDS: Morphine 4 MG/ML Syringe IM (08:26)
--- NOTE | 2024-05-14 08:30 | RAD_ITS ---
PROCEDURE: Pelvis and right hip radiographs REASON FOR EXAM: INJURY/PAIN TECHNIQUE: Three views of the pelvis and right hip COMPARISON: 12/16/2023 FINDINGS: See impression RAD/HIP, UNI W/ Pelvis 2-3 Views IMPRESSION: Intact right hip prosthesis without complicating features. Negative for acute displaced fracture or dislocation. Soft tissue emphysema along the lateral subcutaneous tissues. Reading Location: [facility]
[2024-05-14 08:36] VITALS: BP 138/66; PULSE 71; RESP 18; TEMP 37.1; O2SAT 95
[2024-05-14 09:05] VITALS: BP 133/70; PULSE 66; RESP 18; TEMP 37.1
[2024-05-14 10:00] VITALS: BP 136/61; PULSE 61; RESP 18; TEMP 37.1
[2024-05-14 10:56] VITALS: BP 126/94; PULSE 97; RESP 19; TEMP 36.4; O2SAT 100
== END 2024-05-14 11:04 | disposition home or self-care (01) ==
PROVIDERS: Emergency Provider Emergency Medicine; PCP Family Medicine; Visit Provider Emergency Medicine
DX: Z98.890 Other specified postprocedural states (principal); M25.551 Pain in right hip; Z96.641 Presence of right artificial hip joint; Z87.891 Personal history of nicotine dependence; E78.00 Pure hypercholesterolemia, unspecified; K21.9 Gastro-esophageal reflux disease without esophagitis; Z79.899 Other long term (current) drug therapy; F41.9 Anxiety disorder, unspecified; Z98.51 Tubal ligation status
CPT/HCPCS: 73502; 96372; 99283; A4216